=== PATIENT | female | born 1975 | race Caucasian/White ===

== ENCOUNTER 2017-09-20 12:36 | Emergency (ER) | payer OTHER, MEDICAID, SELFPAY | END 2017-09-20 13:24 | disposition home or self-care (01) | PROVIDERS: Emergency Provider Internal Medicine; Visit Provider Internal Medicine | DX: K04.7 Periapical abscess without sinus (principal) | CPT/HCPCS: 99282 ==

== ENCOUNTER 2017-11-24 14:16 | Emergency (ER) | payer OTHER, MEDICAID, SELFPAY ==
[2017-11-24 14:22] VITALS: BP 107/72; PULSE 97; RESP 18; TEMP 36.9; O2SAT 100
--- NOTE | 2017-11-24 14:22 | ED.ABDPAIN ---
HPI - Abdominal Pain <MYRIAM Farrar - Last Filed: 11/24/17 22:07> General Chief Complaint: Abdominal Pain Stated Complaint: 'THINKS SHES PASSING A STONE' Time Seen by Provider: 11/24/17 14:22 History of Present Illness HPI narrative: 42-year-old female with complaint of having abdominal/flank pain into the right side for the last 7 days. She also states that she has been having dysuria for the same timeframe. She reports that she had a fever yesterday and chills last night. Positive p.o. intake no nausea or vomiting. Last bowel movement was yesterday and was unremarkable. She denies any trauma to the abdomen. She denies any vaginal discharge. No blood in her urine. She denies any other concerns or complaints MD complaint: abdominal pain and flank pain Related Data Previous Rx's Medication Instructions Recorded ciprofloxacin HCl 500 mg PO Q12H #14 tab 11/24/17 metronidazole 500 mg PO TID #21 tab 11/24/17 Allergies Allergy/AdvReac Type Severity Reaction Status Date / Time erythromycin base Allergy Unknown Verified 11/24/17 14:26 [ERYTHROMYCIN BASE] Sulfa (Sulfonamide Allergy Unknown Verified 11/24/17 14:26 Antibiotics) [SULFA (SULFONAMIDE ANTIBIOTICS)] Review of Systems <MYRIAM Farrar - Last Filed: 11/24/17 22:07> Constitutional Reports chills and Reports fever(s) Eyes Denies change in vision, Denies eye discharge, Denies irritation and Denies loss of vision ENT Ears, Nose, Mouth, and Throat: Denies change in voice, Denies neck pain and Denies sore throat Cardiovascular Denies chest pain, Denies irregular heart rhythm, Denies lightheadedness, Denies palpitations, Denies dyspnea, Denies dyspnea on exertion and Denies orthopnea Respiratory Denies cough, Denies dyspnea, Denies dyspnea on exertion and Denies wheezing Gastrointestinal Gastrointestinal: Reports abdominal pain Genitourinary Reports dysuria and Reports flank pain Musculoskeletal Denies neck pain Integumentary/Breasts Denies pruritus, Denies erythema, Denies rash and Denies wounds Neurologic Denies confusion and Denies loss of vision Psychiatric Denies anxiety, Denies confusion, Denies depression, Denies homicidal ideation and Denies suicidal ideation Endocrine Denies palpitations Hematologic/Lymphatic Denies easy bruising Allergic/Immunologic Denies wheezing Exam <MYRIAM Farrar - Last Filed: 11/24/17 22:07> Initial Vital Signs Initial Vital Signs: Vital Signs Temperature 98.5 F 11/24/17 14:22 Pulse Rate 97 H 11/24/17 14:22 Respiratory Rate 18 11/24/17 14:22 Blood Pressure 107/72 11/24/17 14:22 Pulse Oximetry 100 11/24/17 14:22 Const General: cooperative and well developed Nutritional Appearance: well nourished Orientation: alert, awake, oriented x3 and not confused [facility] Mouth: oral mucosae normal and moist mucous membranes Eyes Conjunctivae: conjunctivae normal Sclera: sclerae normal Pupils: PERRL EOM: EOM intact bilaterally Resp Effort & Inspection: normal respiratory effort, able to speak in complete sentences, no respiratory distress and no use of accessory muscles Auscultation: clear to auscultation bilaterally, no rales, no rhonchi and no wheezes Cardio Rate: regular rate Rhythm: regular rhythm Heart Sounds: no click, no gallops, no murmurs and no rubs GI Inspection: non-distended Palpation: soft, no hepatosplenomegaly, No guarding, No pulsatile mass and tender (Right abdomen) General: CVA tenderness (Positive right CVA tenderness) Skin General: no rashes or lesions noted, No jaundice and No petechiae <Barry Lucia DO - Last Filed: 11/25/17 08:05> Initial Vital Signs Initial Vital Signs: Vital Signs Temperature 98.5 F 11/24/17 14:22 Pulse Rate 97 H 11/24/17 14:22 Respiratory Rate 18 11/24/17 14:22 Blood Pressure 107/72 11/24/17 14:22 Pulse Oximetry 100 11/24/17 14:22 Course <MYRIAM Farrar - Last Filed: 11/24/17 22:07> Orders Ordered: Discontinued Medications Sodium Chloride (Normal Saline 0.9%) 1,000 mls @ 1,000 mls/hr IV BOLUS ONE Stop: 11/24/17 15:45 Last Infusion: 11/24/17 16:15 Dose: 0 mls/hr Admin: 11/24/17 15:06 Dose: 1,000 mls/hr Ketorolac Tromethamine (Toradol) 30 mg IV NOW ONE Stop: 11/24/17 15:04 Last Admin: 11/24/17 15:06 Dose: 30 mg Ondansetron HCl (Zofran) 4 mg IV NOW ONE Stop: 11/24/17 15:04 Last Admin: 11/24/17 15:06 Dose: 4 mg Vital Signs - 8 hr 11/24/17 14:22 11/24/17 14:38 11/24/17 16:31 Temperature 98.5 F 98.4 F 98.8 F Pulse Rate 97 H 95 H 95 H Respiratory Rate 18 16 18 Blood Pressure 107/72 Blood Pressure [Left Arm] 118/76 128/81 H Pulse Oximetry 100 100 100 <Barry Lucia DO - Last Filed: 11/25/17 08:05> Orders Ordered: Discontinued Medications Sodium Chloride (Normal Saline 0.9%) 1,000 mls @ 1,000 mls/hr IV BOLUS ONE Stop: 11/24/17 15:45 Last Infusion: 11/24/17 16:15 Dose: 0 mls/hr Admin: 11/24/17 15:06 Dose: 1,000 mls/hr Ketorolac Tromethamine (Toradol) 30 mg IV NOW ONE Stop: 11/24/17 15:04 Last Admin: 11/24/17 15:06 Dose: 30 mg Ondansetron HCl (Zofran) 4 mg IV NOW ONE Stop: 11/24/17 15:04 Last Admin: 11/24/17 15:06 Dose: 4 mg Vital Signs - 8 hr 11/24/17 14:22 11/24/17 14:38 11/24/17 16:31 Temperature 98.5 F 98.4 F 98.8 F Pulse Rate 97 H 95 H 95 H Respiratory Rate 18 16 18 Blood Pressure 107/72 Blood Pressure [Left Arm] 118/76 128/81 H Pulse Oximetry 100 100 100 MDM - Abdominal Pain <MYRIAM Farrar - Last Filed: 11/24/17 22:07> Lab Data Result diagrams: 11/24/17 14:52 11/24/17 14:52 Lab Results 11/24/17 11/24/17 11/24/17 Range/Units 14:52 14:52 15:08 WBC 11.5 H (4.5-11.0) X10^3/uL RBC 4.14 (4.0-5.2) X10^6/uL Hgb 12.6 (12.0-16.0) g/dL Hct 37.4 (36-46) % MCV 90.4 (80-100) fL MCH 30.4 (26-34) PG MCHC 33.6 (30-36) % RDW 12.4 (11.6-14.8) % Plt Count 360 (150-400) X10^3/uL Neut % (Auto) 81.9 H (50-75) % Lymph % (Auto) 10.6 L (25-40) % [place] % (Auto) 5.8 (3-14) % Eos % (Auto) 1.2 L (2-4) % Baso % (Auto) 0.5 (0-2) % Neut # (Auto) 9400 H (5720-8558) /uL Sodium 134 L (137-145) mmol/L Potassium 3.7 (3.4-5.1) mmol/L Chloride 98 (98-107) mmol/L Carbon Dioxide 26 (22-32) mmol/L BUN 9 (7-17) mg/dL Creatinine 0.70 (0.52-1.04) mg/dL Estimated GFR > 60.0 (>60) mL/min BUN/Creatinine Ratio 12.9 (6-22) Glucose 139 H (70-100) mg/dL Calcium 8.5 (8.4-10.2) mg/dL Total Bilirubin 1.0 (0.2-1.3) mg/dL AST 17 (14-36) IU/L ALT 27 (9-52) IU/L Alkaline Phosphatase 60 (38-126) U/L Total Protein 6.8 (6.3-8.2) g/dL Albumin 3.8 (3.5-5.0) g/dL Globulin 3.0 (1.7-4.1) g/dL Albumin/Globulin Ratio 1.3 (1.0-2.8) Lipase 29 (23-300) U/L Urine RBC 30-100/hpf H (0-5/HPF) Urine WBC >100/hpf H (0-5/HPF) Ur Squamous Epith Cells 0-1 /hpf Urine Bacteria Moderate (10-30) H (None) Ur Culture Indicated? Specimen cultured Micro UA Comment Not Reportable Imaging Data CT scan - abdomen: Radiologist's impression: PROCEDURE: CT ABDOMEN PELVIS W CON INDICATIONS: Pain into right side of abdomen TECHNIQUE: After the administration of intravenous contrast, 5 mm thick sections acquired from the diaphragm to the symphysis. 5 mm coronal and sagittal reformats were acquired. For radiation dose reduction, the following was used: automated exposure control, adjustment of mA and/or kV according to patient size. COMPARISON: [facility], CT, ABDOMEN/PELVIS WITH CONTRAST, 06/25/2016, 0:45. FINDINGS: Image quality: Excellent. ABDOMEN: Lung bases: Lung bases are clear. Heart size is normal. Solid organs: Liver is normal in size and enhancement. Gallbladder appears clear with normal wall thickness.. Biliary system is non dilated. Pancreas enhances normally. Spleen is normal in size and enhancement. No adrenal nodules. Kidneys demonstrate normal size and enhancement, without hydronephrosis. Peritoneum and bowel: The stomach is nondistended, distal body and antrum appearing thick walled. The duodenal loop is distended with air-fluid level in the third portion. Small bowel loops demonstrate normal wall thickness and caliber. Appendix is air-filled and normal-appearing. The colon is unremarkable except for the sigmoid segment which shows mild, diffuse wall thickening. No diverticular disease. No appreciable paracolic fat stranding or fluid collection. No free air. There is a small amount of free fluid in the right upper quadrant, anterior to the right renal pelvis and adjacent to the duodenum. Nodes and vessels: No retroperitoneal or mesenteric adenopathy by size criteria. Aorta and inferior vena cava are normal in size. Miscellaneous: No ventral hernias. PELVIS: Genitourinary: Bladder wall thickness is normal. Uterus contains a 2.3 cm ill-defined hyperdensity with central hypodensity in the left mid body, likely fibroid as noted previously. No adnexal abnormality seen. Miscellaneous: No inguinal hernias or adenopathy. Bones: No suspicious bony lesions. No vertebral body compression fractures. IMPRESSION: 1. No specific abnormality to explain right lower quadrant pain. Normal appendix is visualized. 2. Apparent thickening of the wall in the distal stomach raising possibility of antritis. The duodenum is moderately distended with air-fluid level. This is nonspecific however there is a small amount of adjacent free fluid that is indeterminate. 3. Mild, diffuse wall thickening is also noted in the sigmoid colon raising possibility of colitis. Bowel findings could simply represent incomplete distention. 4. Enhancing uterine fibroid on the left, 2. 3 cm in size Dictated by: Earnest Jones M.D. on 11/24/2017 at 15:43 Approved by: Earnest Jones M.D. on 11/24/2017 at 15:56 MDM Narrative Medical decision making narrative: CBC shows slightly elevated white count. Glucose was elevated 139 however CBC and Chem panel are otherwise unremarkable. Urinalysis indicates urinary tract infection. CT shows some signs that could indicate colitis otherwise was also unremarkable for acute findings. Will treat for pyelonephritis with clindamycin. Will also place patient on Flagyl to cover for colitis along with the clindamycin. She is encouraged to follow up with the primary care provider in the next few days for re-evaluation. [id number] Tylenol or Motrin as needed for any discomfort. Plenty of fluids. For any worsening symptoms return to the emergency room. <Barry Lucia, - Last Filed: 11/25/17 08:05> Lab Data Lab Results 11/24/17 11/24/17 11/24/17 Range/Units 14:52 14:52 15:08 WBC 11.5 H (4.5-11.0) X10^3/uL RBC 4.14 (4.0-5.2) X10^6/uL Hgb 12.6 (12.0-16.0) g/dL Hct 37.4 (36-46) % MCV 90.4 (80-100) fL MCH 30.4 (26-34) PG MCHC 33.6 (30-36) % RDW 12.4 (11.6-14.8) % Plt Count 360 (150-400) X10^3/uL Neut % (Auto) 81.9 H (50-75) % Lymph % (Auto) 10.6 L (25-40) % [place] % (Auto) 5.8 (3-14) % Eos % (Auto) 1.2 L (2-4) % Baso % (Auto) 0.5 (0-2) % Neut # (Auto) 9400 H (6730-8130) /uL Sodium 134 L (137-145) mmol/L Potassium 3.7 (3.4-5.1) mmol/L Chloride 98 (98-107) mmol/L Carbon Dioxide 26 (22-32) mmol/L BUN 9 (7-17) mg/dL Creatinine 0.70 (0.52-1.04) mg/dL Estimated GFR > 60.0 (>60) mL/min BUN/Creatinine Ratio 12.9 (6-22) Glucose 139 H (70-100) mg/dL Calcium 8.5 (8.4-10.2) mg/dL Total Bilirubin 1.0 (0.2-1.3) mg/dL AST 17 (14-36) IU/L ALT 27 (9-52) IU/L Alkaline Phosphatase 60 (38-126) U/L Total Protein 6.8 (6.3-8.2) g/dL Albumin 3.8 (3.5-5.0) g/dL Globulin 3.0 (1.7-4.1) g/dL Albumin/Globulin Ratio 1.3 (1.0-2.8) Lipase 29 (23-300) U/L Urine RBC 30-100/hpf H (0-5/HPF) Urine WBC >100/hpf H (0-5/HPF) Ur Squamous Epith Cells 0-1 /hpf Urine Bacteria Moderate (10-30) H (None) Ur Culture Indicated? Specimen cultured Micro UA Comment Not Reportable Discharge Plan Departure Patient Disposition: Home, Self-Care Clinical Impression: Pyelonephritis Discharge Date/Time: 11/24/17 17:18 Interventions: ED Discharge Assessment Last Done: 11/24/17 17:17 Instructions: DI for Kidney Infection Activity Restrictions/Additional Instructions: Laboratory results indicate urinary tract infection. CT of the abdomen shows findings that could show some inflammation to the large intestine however this is not definite. UR placed on an antibiotic called ciprofloxacin to cover for kidney infection. You also placed on an antibiotic called Flagyl to cover in case of colitis. Use [id number] Tylenol or Motrin as needed for any discomfort. Plenty of fluids follow up with her primary care provider the next few days for re-evaluation. For any worsening symptoms return to the emergency room. Prescriptions: New metronidazole 500 mg tablet 500 mg PO TID Qty: 21 RF: 0 ciprofloxacin HCl 500 mg tablet 500 mg PO Q12H Qty: 14 RF: 0 Referrals: [facility] [Provider Group] <Barry Lucia, DO - Last Filed: 11/25/17 08:05> Cosign ED Attending Jamee Attestation: I was available for consultation during this patient's emergency department encounter
[2017-11-24 14:38] VITALS: BP 118/76; PULSE 95; RESP 16; TEMP 36.9; O2SAT 100
--- NOTE | 2017-11-24 14:49 | DI.CT.S_ITS ---
PROCEDURE: CT ABDOMEN PELVIS W CON INDICATIONS: Pain into right side of abdomen TECHNIQUE: After the administration of intravenous contrast, 5 mm thick sections acquired from the diaphragm to the symphysis. 5 mm coronal and sagittal reformats were acquired. For radiation dose reduction, the following was used: automated exposure control, adjustment of mA and/or kV according to patient size. COMPARISON: [facility], CT, ABDOMEN/PELVIS WITH CONTRAST, 06/25/2016, 0:45. FINDINGS: Image quality: Excellent. ABDOMEN: Lung bases: Lung bases are clear. Heart size is normal. Solid organs: Liver is normal in size and enhancement. Gallbladder appears clear with normal wall thickness.. Biliary system is non dilated. Pancreas enhances normally. Spleen is normal in size and enhancement. No adrenal nodules. Kidneys demonstrate normal size and enhancement, without hydronephrosis. Peritoneum and bowel: The stomach is nondistended, distal body and antrum appearing thick walled. The duodenal loop is distended with air-fluid level in the third portion. Small bowel loops demonstrate normal wall thickness and caliber. Appendix is air-filled and normal-appearing. The colon is unremarkable except for the sigmoid segment which shows mild, diffuse wall thickening. No diverticular disease. No appreciable paracolic fat stranding or fluid collection. No free air. There is a small amount of free fluid in the right upper quadrant, anterior to the right renal pelvis and adjacent to the duodenum. Nodes and vessels: No retroperitoneal or mesenteric adenopathy by size criteria. Aorta and inferior vena cava are normal in size. Miscellaneous: No ventral hernias. PELVIS: Genitourinary: Bladder wall thickness is normal. Uterus contains a 2.3 cm ill-defined hyperdensity with central hypodensity in the left mid body, likely fibroid as noted previously. No adnexal abnormality seen. Miscellaneous: No inguinal hernias or adenopathy. Bones: No suspicious bony lesions. No vertebral body compression fractures. IMPRESSION: 1. No specific abnormality to explain right lower quadrant pain. Normal appendix is visualized. 2. Apparent thickening of the wall in the distal stomach raising possibility of antritis. The duodenum is moderately distended with air-fluid level. This is nonspecific however there is a small amount of adjacent free fluid that is indeterminate. 3. Mild, diffuse wall thickening is also noted in the sigmoid colon raising possibility of colitis. Bowel findings could simply represent incomplete distention. 4. Enhancing uterine fibroid on the left, 2. 3 cm in size Dictated by: Earnest Jones M.D. on 11/24/2017 at 15:43 Approved by: Earnest Jones M.D. on 11/24/2017 at 15:56
[2017-11-24 15:03] LABS: Add Manual Diff / Slide Review NO; Basophils Percent Auto 0.5 % (0-2); Eosinophils Percent Auto 1.2 % (2-4); Hematocrit 37.4 % (36-46); Hemoglobin 12.6 g/dL (12.0-16.0); Lymphocytes Percent Auto 10.6 % (25-40); Mean Corpuscular HGB Conc 33.6 % (30-36); Mean Corpuscular Hemoglobin 30.4 PG (26-34); Mean Corpuscular Volume 90.4 fL (80-100); Monocytes Percent Auto 5.8 % (3-14); Neutrophils Absolute Auto 9400 /uL (3000-5900); Neutrophils Percent Auto 81.9 % (50-75); Platelet Count 360 X10^3/uL (150-400); Red Blood Cell Count 4.14 X10^6/uL (4.0-5.2); Red Cell Distribution Width 12.4 % (11.6-14.8); White Blood Cell Count 11.5 X10^3/uL (4.5-11.0)
[2017-11-24] MEDS: SODIUM CHLORIDE 0.9% 1,000 ML 1000 ML IV (15:06)
[2017-11-24] MEDS: ONDANSETRON 4 MG/2 ML INJ IV (15:06)
[2017-11-24] MEDS: KETOROLAC 60 MG/2 ML VIAL 30 MG IV (15:06)
[2017-11-24 15:12] LABS: Alanine Aminotransferase 27 IU/L (9-52); Albumin 3.8 g/dL (3.5-5.0); Albumin Globulin Ratio 1.3 (1.0-2.8); Alkaline Phosphatase 60 U/L (38-126); Aspartate Aminotransferase 17 IU/L (14-36); BUN Creatinine Ratio 12.9 (6-22); Blood Urea Nitrogen 9 mg/dL (7-17); Calcium 8.5 mg/dL (8.4-10.2); Carbon Dioxide 26 mmol/L (22-32); Chloride 98 mmol/L (98-107); Estimated Glomerular Filt Rate > 60.0 mL/min (>60); Glucose 139 mg/dL (70-100); HEMOLYSIS < 15 (0-50); Lipase 29 U/L (23-300); Potassium 3.7 mmol/L (3.4-5.1); Sodium 134 mmol/L (137-145); Total Protein 6.8 g/dL (6.3-8.2)
[2017-11-24 16:31] VITALS: BP 128/81; PULSE 95; RESP 18; TEMP 37.1; O2SAT 100
[2017-11-24 16:56] LABS: RBC Urine 30-100/HPF (0-5/HPF); Squamous Epithelial Cell Urine 0-1 /HPF; WBC Urine >100/HPF (0-5/HPF)
[2017-11-24 16:57] LABS: Bacteria Urine Moderate (10-30); Culture Indicated Urine Specimen Cultured
== END 2017-11-24 17:18 | disposition home or self-care (01) ==
PROVIDERS: Emergency Provider Nurse Practitioner Family
DX: N12 Tubulo-interstitial nephritis, not specified as acute or chronic (principal)
CPT/HCPCS: 36591; 74177; 80053; 81003; 81015; 81025; 83690; 85025; 87077; 87086; 87186; 96361; 96374; 96375; 99283; 99285; J1885; J2405; Q9967

== ENCOUNTER 2017-11-26 08:35 | Inpatient (IN) | payer OTHER, MEDICAID, SELFPAY ==
[2017-11-26] VITALS (13 sets, daily range): BP systolic 114–137; BP diastolic 67–99; PULSE 90–124; RESP 16–24; TEMP 37.1–39.4; O2SAT 94–100; BMI 21.9
--- NOTE | 2017-11-26 09:16 | ED_ITS ---
HPI - Female Genitourinary General Chief complaint: Urogenital-Female Stated complaint: KIDNEY PAIN, THROWING UP Time Seen by Provider: 11/26/17 08:38 Source: patient Mode of arrival: ambulatory Limitations: no limitations History of Present Illness HPI Narrative: 42-year-old female here for evaluation of right-sided kidney pain and throwing up. Patient was seen here in the emergency department a couple days ago was diagnosed with the urinary tract infection and also pyelonephritis. She was given a prescription for antibiotics. She states she has been unable to fill those antibiotics because she ?could not get to [facility] ?she states that her symptoms are now worse. She has been throwing up. Fever. Worsening right-sided flank pain. Worsening dysuria. Related Data Home Medications Medication Instructions Recorded Confirmed No Known Home Medications 11/26/17 11/26/17 Allergies Allergy/AdvReac Type Severity Reaction Status Date / Time erythromycin base Allergy Unknown Verified 11/24/17 14:26 [ERYTHROMYCIN BASE] Sulfa (Sulfonamide Allergy Unknown Verified 11/24/17 14:26 Antibiotics) [SULFA (SULFONAMIDE ANTIBIOTICS)] Review of Systems Constitutional Reports fever(s) and Reports malaise ENT Ears, Nose, Mouth, and Throat: Denies vertigo and Denies dizziness Cardiovascular Denies chest pain, Denies palpitations and Denies dyspnea Respiratory Denies cough and Denies dyspnea Gastrointestinal Gastrointestinal: Denies diarrhea, Reports nausea and Reports vomiting Genitourinary Reports urinary frequency, Reports dysuria and Reports flank pain Integumentary/Breasts Denies lesions and Denies rash Neurologic Denies confusion, Denies vertigo and Denies dizziness Psychiatric Denies confusion Endocrine Denies palpitations Hematologic/Lymphatic Denies easy bleeding and Denies easy bruising [facility] Social History household members: none Smoking Status: Current every day smoker alcohol intake: never Exam Initial Vital Signs Initial Vital Signs: Vital Signs Temperature 98.9 F 11/26/17 08:58 Pulse Rate 124 H 11/26/17 08:58 Respiratory Rate 20 11/26/17 08:58 Blood Pressure 137/99 H 11/26/17 08:58 Pulse Oximetry 99 11/26/17 08:58 Const General: cooperative, No comfortable, well developed, in distress and ill appearing [facility] Head: normal to inspection and normocephalic Resp Effort & Inspection: normal respiratory effort Auscultation: clear to auscultation bilaterally Cardio Rate: tachycardic Rhythm: regular rhythm Pulses: radial pulses present GI Inspection: normal to inspection Palpation: tender (Lower abdomen) Back/Spine/Pelvis Back: CVA tenderness right Skin Lesions: no lesions Rashes: no rashes Neuro General: alert, awake and oriented x3 Extrem General: normal to inspection Course Orders Ordered: ED Orders 11/26/17 13:50 Lactate 4HR (Lactic Acid Rflx) Stat 11/26/17 15:14 Education, smoking cessation ONGOING 11/27/17 05:00 Complete Blood Count AUTO DIFF Routine Comprehensive Metabolic Panel Routine Acetaminophen (Tylenol) 650 mg PO Q6HR PRN PRN Reason: As Needed for Fever/Mild Pain Enoxaparin Sodium (Lovenox) 40 mg SUBCUT DAILY LEOPOLDO Sodium Chloride (Normal Saline 0.9%) 1,000 mls @ 125 mls/hr IV CONT LEOPOLDO Last Infusion: 11/26/17 12:19 Dose: 125 mls/hr Admin: 11/26/17 10:49 Dose: 125 mls/hr Dextrose/Sodium Chloride (Dextrose 5%-0.9% Ns) 1,000 mls @ 100 mls/hr IV CONT LEOPOLDO Last Admin: 11/26/17 16:00 Dose: 100 mls/hr Ceftriaxone Sodium/Dextrose (Rocephin) 1 gm in 50 mls @ 100 mls/hr IV 1000 LEOPOLDO Ketorolac Tromethamine (Toradol) 30 mg IV Q6HR PRN PRN Reason: pain Stop: 12/01/17 15:16 Morphine Sulfate (Morphine) 4 mg IV Q4HR PRN PRN Reason: Pain, Moderate (4-6) Last Admin: 11/26/17 17:04 Dose: 4 mg Ondansetron HCl (Zofran) 4 mg IV Q4HR PRN PRN Reason: Nausea And Vomiting Last Admin: 11/26/17 17:00 Dose: 4 mg Discontinued Medications Acetaminophen (Tylenol) 975 mg PO NOW ONE Stop: 11/26/17 10:03 Last Admin: 11/26/17 10:03 Dose: 975 mg Acetaminophen (Tylenol) 650 mg PO Q6HR PRN PRN Reason: As Needed for Fever/Mild Pain Sodium Chloride (Normal Saline 0.9%) 1,000 mls @ 1,000 mls/hr IV BOLUS ONE Stop: 11/26/17 10:13 Last Infusion: 11/26/17 10:48 Dose: 0 mls/hr Admin: 11/26/17 09:32 Dose: 1,000 mls/hr Ceftriaxone Sodium/Dextrose (Rocephin) 1 gm in 50 mls @ 100 mls/hr IV NOW ONE Stop: 11/26/17 09:54 Last Infusion: 11/26/17 10:32 Dose: 0 mls/hr Admin: 11/26/17 09:58 Dose: 100 mls/hr Sodium Chloride (Normal Saline 0.9%) 1,000 mls @ 1,000 mls/hr IV BOLUS ONE Stop: 11/26/17 11:50 Last Infusion: 11/26/17 12:19 Dose: 0 mls/hr Admin: 11/26/17 10:53 Dose: 1,000 mls/hr Morphine Sulfate (Morphine Sulfate) 5 mg IV NOW ONE Stop: 11/26/17 09:26 Last Admin: 11/26/17 09:33 Dose: Morphine Sulfate (Morphine) 4 mg IV NOW ONE Stop: 11/26/17 09:39 Last Admin: 11/26/17 09:39 Dose: 4 mg Morphine Sulfate (Morphine) 4 mg IV Q4HR PRN PRN Reason: Pain, Moderate (4-6) Ondansetron HCl (Zofran) 4 mg IV NOW ONE Stop: 11/26/17 09:26 Last Admin: 11/26/17 09:33 Dose: 4 mg Vital Signs - 8 hr 11/26/17 11:22 11/26/17 12:30 11/26/17 15:14 Temperature 99.2 F Pulse Rate 98 H 100 H Respiratory Rate 17 18 18 Blood Pressure 118/67 Blood Pressure [Left Arm] 114/70 Pulse Oximetry 97 95 11/26/17 15:58 Temperature 98.8 F Pulse Rate 96 H Respiratory Rate 16 Blood Pressure 123/74 H Blood Pressure [Left Arm] Pulse Oximetry 99 MDM - Female Genitourinary Medical Records Attestation: I reviewed the patient's medical records. Lab Data Attestation: I reviewed the patient's lab results. Result diagrams: 11/26/17 09:20 11/26/17 09:20 Lab Results 11/26/17 11/26/17 11/26/17 Range/Units 09:20 09:20 09:20 WBC 14.2 H (4.5-11.0) X10^3/uL RBC 3.62 L (4.0-5.2) X10^6/uL Hgb 11.0 L (12.0-16.0) g/dL Hct 32.4 L (36-46) % MCV 89.4 (80-100) fL MCH 30.4 (26-34) PG MCHC 33.9 (30-36) % RDW 12.1 (11.6-14.8) % Plt Count 374 (150-400) X10^3/uL Neut % (Auto) 82.7 H (50-75) % Lymph % (Auto) 6.0 L (25-40) % [place] % (Auto) 9.3 (3-14) % Eos % (Auto) 1.3 L (2-4) % Baso % (Auto) 0.7 (0-2) % Neut # (Auto) 62672 H (3865-7395) /uL Sodium 129 L (137-145) mmol/L Potassium 3.9 (3.4-5.1) mmol/L Chloride 94 L (98-107) mmol/L Carbon Dioxide 23 (22-32) mmol/L BUN 10 (7-17) mg/dL Creatinine 0.60 (0.52-1.04) mg/dL Estimated GFR > 60.0 (>60) mL/min BUN/Creatinine Ratio 16.7 (6-22) Glucose 120 H (70-100) mg/dL Lactate 2.6 H (0.7-2.1) mmol/L Calcium 8.2 L (8.4-10.2) mg/dL Total Bilirubin 0.5 (0.2-1.3) mg/dL AST 33 (14-36) IU/L ALT 32 (9-52) IU/L Alkaline Phosphatase 81 (38-126) U/L Total Protein 6.4 (6.3-8.2) g/dL Albumin 3.6 (3.5-5.0) g/dL Globulin 2.8 (1.7-4.1) g/dL Albumin/Globulin Ratio 1.3 (1.0-2.8) Lipase 43 (23-300) U/L 11/26/17 Range/Units 13:50 WBC (4.5-11.0) X10^3/uL RBC (4.0-5.2) X10^6/uL Hgb (12.0-16.0) g/dL Hct (36-46) % MCV (80-100) fL MCH (26-34) PG MCHC (30-36) % RDW (11.6-14.8) % Plt Count (150-400) X10^3/uL Neut % (Auto) (50-75) % Lymph % (Auto) (25-40) % [place] % (Auto) (3-14) % Eos % (Auto) (2-4) % Baso % (Auto) (0-2) % Neut # (Auto) (9559-4060) /uL Sodium (137-145) mmol/L Potassium (3.4-5.1) mmol/L Chloride (98-107) mmol/L Carbon Dioxide (22-32) mmol/L BUN (7-17) mg/dL Creatinine (0.52-1.04) mg/dL Estimated GFR (>60) mL/min BUN/Creatinine Ratio (6-22) Glucose (70-100) mg/dL Lactate 0.8 (0.7-2.1) mmol/L Calcium (8.4-10.2) mg/dL Total Bilirubin (0.2-1.3) mg/dL AST (14-36) IU/L ALT (9-52) IU/L Alkaline Phosphatase (38-126) U/L Total Protein (6.3-8.2) g/dL Albumin (3.5-5.0) g/dL Globulin (1.7-4.1) g/dL Albumin/Globulin Ratio (1.0-2.8) Lipase (23-300) U/L [facility] Narrative Medical decision making narrative: Patient with a diagnosis of urinary tract infection and pyelonephritis during her last ER visit. Has not been on any antibiotics. Today here with worsening symptoms and vomiting a tachycardia and fever and elevated white count in elevated lactate. She was given Rocephin and fluids here in the emergency department. Discussed the case with Dr. Wheeler with Internal Medicine will admit for IV antibiotics and fluid hydration. Discharge Plan Departure Patient Disposition: Admitted As Inpatient Clinical Impression: Pyelonephritis, Sepsis Discharge Date/Time: 11/26/17 12:49 Interventions: ED Discharge Assessment Last Done: 11/26/17 12:19 Admit Date/Time: 11/26/17 11:49 Admit Provider: Beck Wheeler
[2017-11-26] MEDS: SODIUM CHLORIDE 0.9% 1,000 ML 1000 ML IV ×2 (09:32→10:53)
[2017-11-26] MEDS: ONDANSETRON 4 MG/2 ML INJ IV ×2 (09:33→17:00)
[2017-11-26 09:34] LABS: Add Manual Diff / Slide Review NO; Basophils Percent Auto 0.7 % (0-2); Eosinophils Percent Auto 1.3 % (2-4); Hematocrit 32.4 % (36-46); Mean Corpuscular HGB Conc 33.9 % (30-36); Mean Corpuscular Hemoglobin 30.4 PG (26-34); Mean Corpuscular Volume 89.4 fL (80-100); Monocytes Percent Auto 9.3 % (3-14); Neutrophils Absolute Auto 11700 /uL (3000-5900); Neutrophils Percent Auto 82.7 % (50-75); Platelet Count 374 X10^3/uL (150-400); Red Blood Cell Count 3.62 X10^6/uL (4.0-5.2); Red Cell Distribution Width 12.1 % (11.6-14.8); White Blood Cell Count 14.2 X10^3/uL (4.5-11.0)
[2017-11-26] MEDS: MORPHINE 4 MG/ML INJ IV ×3 (09:39→21:17)
[2017-11-26 09:41] LABS: Lactate (Lactic Acid) 2.6 mmol/L (0.7-2.1)
[2017-11-26 09:42] LABS: Alanine Aminotransferase 32 IU/L (9-52); Albumin 3.6 g/dL (3.5-5.0); Albumin Globulin Ratio 1.3 (1.0-2.8); Alkaline Phosphatase 81 U/L (38-126); Aspartate Aminotransferase 33 IU/L (14-36); BUN Creatinine Ratio 16.7 (6-22); Bilirubin Total 0.5 mg/dL (0.2-1.3); Blood Urea Nitrogen 10 mg/dL (7-17); Calcium 8.2 mg/dL (8.4-10.2); Carbon Dioxide 23 mmol/L (22-32); Chloride 94 mmol/L (98-107); Estimated Glomerular Filt Rate > 60.0 mL/min (>60); Globulin 2.8 g/dL (1.7-4.1); Glucose 120 mg/dL (70-100); HEMOLYSIS < 15 (0-50); Lipase 43 U/L (23-300); Potassium 3.9 mmol/L (3.4-5.1); Sodium 129 mmol/L (137-145); Total Protein 6.4 g/dL (6.3-8.2)
[2017-11-26] MEDS: CEFTRIAXONE 1 GM/50 ML FROZ.PIGGY IV (09:58)
[2017-11-26] MEDS: ACETAMINOPHEN 325 MG TABLET 975 MG PO (10:03)
[2017-11-26] MEDS: SODIUM CHLORIDE 0.9% 1,000 ML 125 ML IV (10:49)
[2017-11-26 13:30] LABS: Reflexed Lactate in 2 Hours Y
--- NOTE | 2017-11-26 13:47 | PC.NURSE ---
Addendum entered by Dayan Mccord R.N. 11/26/17 14:22: Resting quietly with eyes closed, awakened easily to voice/touch. IV fluids re-started per orders, site in L forearm flushed well and with good blood return. IV secured with more tape and mesh sleeve. Patient denies needs at this time. She's hoping to catch up on some sleep. Agrees to call for SBA to BR (to help with IV pole). Call light in reach. Original Note: Admit: Arrived to room 221 at 1230. Alert and oriented X3, transferred self to bed and steady on feet. Low fall risk, agrees to call if she has any concerns about transferring alone. Denies fever, chills. Temp 99.2 orally. Denies N/V or abd pain. C/O slight headache, otherwise states I'm feeling so much better than I was this morning. Abd soft, nontender, BT+. Lungs CTA, SpO2 on RA 99%. HRR. Oriented to call light and encouraged to make needs known. Declined to lock wallet, cellphone or other items in safe. Page out to Dr Wheeler at this time to let him know patient is here.
[2017-11-26 14:09] LABS: Lactate 2HR (Lactic Acid Rflx) 0.8 mmol/L (0.7-2.1)
--- NOTE | 2017-11-26 15:17 | PM.HP.1 ---
History of Present Illness Date Patient Seen: 11/26/17 Time Patient Seen: 15:17 Chief complaint: Pyelonephritis, Sepsis Narrative: 42-year-old female previously healthy presented a few days ago to the ER with flank pain diagnosed with a kidney infection and did not do well as an outpatient she comes back in now with fever and worsening pain. Previously had been very healthy. She also complains of nausea vomiting inability keep anything down. Patient History Family & Social History Social History: household members none Prior Living Arrangements Mobile home Safety & Behavioral: Feels Safe in Current Yes Environment Been Physically Hurt or No Threatened By a Person Suicidal Ideation Description None Suicide Plan Description No Plan Tobacco & Substance use: Tobacco type cigarettes Smoking Status Current every day smoker Smoking packs per day 1 alcohol intake never alcohol intake frequency 0-2 drinks per day Substance Use Type marijuana Meds Home Medications Medication Instructions Recorded Confirmed Type No Known Home Medications 11/26/17 11/26/17 History Allergies Allergy/AdvReac Type Severity Reaction Status Date / Time erythromycin base Allergy Unknown Verified 11/24/17 14:26 [ERYTHROMYCIN BASE] Sulfa (Sulfonamide Allergy Unknown Verified 11/24/17 14:26 Antibiotics) [SULFA (SULFONAMIDE ANTIBIOTICS)] Review of Systems Review of Systems All systems reviewed & are unremarkable except as noted in HPI and below Exam Vital Signs (past 8 hours): - 11/26/17 08:58 11/26/17 09:39 11/26/17 09:40 Temperature 98.9 F 103 F H Pulse Rate 124 H 104 H Respiratory Rate 20 Blood Pressure 137/99 H Blood Pressure [Left Arm] 114/79 Pulse Oximetry 99 96 11/26/17 09:41 11/26/17 10:03 11/26/17 10:05 Temperature 103 F H Pulse Rate 102 H 101 H Respiratory Rate 24 20 Blood Pressure Blood Pressure [Left Arm] 114/79 121/77 H Pulse Oximetry 96 94 11/26/17 10:54 11/26/17 10:55 11/26/17 11:22 Temperature 98.9 F 98.9 F Pulse Rate 98 H Respiratory Rate 17 Blood Pressure Blood Pressure [Left Arm] 114/70 Pulse Oximetry 97 11/26/17 12:30 Temperature 99.2 F Pulse Rate 100 H Respiratory Rate 18 Blood Pressure 118/67 Blood Pressure [Left Arm] Pulse Oximetry 95 Oxygen Delivery Method Room Air Oxygen Flow Rate 0 Narrative Exam Narrative: Pleasant middle-aged female no acute distress eating lunch currently HEENT exam unremarkable neck is supple Lungs Clear to auscultation Heart tachycardic Abdomen soft Back she does have CVA tenderness to palpation percussion on the right Neuro exam awake alert oriented no focal deficits Skin warm and dry Objective Labs Result Diagrams: 11/26/17 09:20 11/26/17 09:20 Labs: Laboratory Results - last 24 hr 11/26/17 11/26/17 11/26/17 09:20 09:20 09:20 WBC 14.2 H RBC 3.62 L Hgb 11.0 L Hct 32.4 L MCV 89.4 MCH 30.4 MCHC 33.9 RDW 12.1 Plt Count 374 Neut % (Auto) 82.7 H Lymph % (Auto) 6.0 L [place] % (Auto) 9.3 Eos % (Auto) 1.3 L Baso % (Auto) 0.7 Neut # (Auto) 86473 H Sodium 129 L Potassium 3.9 Chloride 94 L Carbon Dioxide 23 BUN 10 Creatinine 0.60 Estimated GFR > 60.0 BUN/Creatinine Ratio 16.7 Glucose 120 H Lactate 2.6 H Calcium 8.2 L Total Bilirubin 0.5 AST 33 ALT 32 Alkaline Phosphatase 81 Total Protein 6.4 Albumin 3.6 Globulin 2.8 Albumin/Globulin Ratio 1.3 Lipase 43 11/26/17 13:50 WBC RBC Hgb Hct MCV MCH MCHC RDW Plt Count Neut % (Auto) Lymph % (Auto) [place] % (Auto) Eos % (Auto) Baso % (Auto) Neut # (Auto) Sodium Potassium Chloride Carbon Dioxide BUN Creatinine Estimated GFR BUN/Creatinine Ratio Glucose Lactate 0.8 Calcium Total Bilirubin AST ALT Alkaline Phosphatase Total Protein Albumin Globulin Albumin/Globulin Ratio Lipase Assessment & Plan Plan: Assessment/Plan Narrative: One. Pyelonephritis patient has been unresponsive to outpatient treatment failed outpatient treatment. Now with intractable nausea and vomiting. Plan to place her inpatient IV antibiotics IV fluids and treat aggressively. Quality VTE Deep Vein Thrombosis/Pulmonary Embolism Present on Admission: No
[2017-11-26] MEDS: DEXTROSE 5%-0.9% NS 1,000 ML 100 ML IV (16:00)
[2017-11-26] MEDS: ACETAMINOPHEN 325 MG TABLET 650 MG PO (20:38)
[2017-11-27] VITALS (8 sets, daily range): BP systolic 129–148; BP diastolic 64–78; PULSE 81–97; RESP 16–22; TEMP 36.5–37.5; O2SAT 97–100
[2017-11-27 00:41] LABS: Acinetobacter baumannii Not Detected (Not Detect); Enterobacteriaceae species Detected (Not Detect); Enterococcus species Not Detected (Not Detect); KPC (carbapenem-resist gene) Not Detected (Not Detect); Listeria monocytogenes Not Detected (Not Detect); Staphylococcus species Not Detected (Not Detect); Streptococcus agalactiae (Gr B Not Detected (Not Detect); Streptococcus pneumonia Not Detected (Not Detect); Streptococcus pyogenes (Gr A) Not Detected (Not Detect); Streptococcus species Not Detected (Not Detect)
[2017-11-27 00:44] LABS: Candida albicans Not Detected (Not Detect); Candida glabrata Not Detected (Not Detect); Candida krusei Not Detected (Not Detect); Candida parapsilosis Not Detected (Not Detect); Candida tropicalis Not Detected (Not Detect); E. coli Detected (Not Detect); Enterobacter cloacae complex Not Detected (Not Detect); Haemophilus influenzae Not Detected (Not Detect); Neisseria meningitidis Not Detected (Not Detect); Proteus species Not Detected (Not Detect); Pseudomonas aeruginosa Not Detected (Not Detect); Serratia marcescens Not Detected (Not Detect)
[2017-11-27] MEDS: DEXTROSE 5%-0.9% NS 1,000 ML 100 ML IV ×2 (00:45→10:00)
--- NOTE | 2017-11-27 05:41 | PC.NURSE ---
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 No prn's given throuhgout night. OOB several times to BR to void. Was missing hat X2 in toilet, now 2 measuring hats present, pt aware of need for I/O's. Drinking lots of fluid, water, cranberry and grape juice. IVF infusing well to left FA PIV. Urine yellow with pink ting and very small clots present. Rec'd call from lab at 0042, 2 each bottle of blood cultures positive for ecoli, Dr Wheeler paged X2 and made aware upon Dr. Wheeler call back, currently on Ceftriaxone, no further orders rec'd. Temp max 99.5F, pt stated feeling cold asking for frequent warm blankets, diaphoretic X1. Bed alarm on, pt sets off and does not use call light to call for help to BR. SBA, steady gait, previous shift was tangled in IV line.
[2017-11-27 05:54] LABS: Add Manual Diff / Slide Review NO; Basophils Percent Auto 0.5 % (0-2); Eosinophils Percent Auto 1.4 % (2-4); Hematocrit 33.4 % (36-46); Hemoglobin 11.2 g/dL (12.0-16.0); Lymphocytes Percent Auto 9.5 % (25-40); Mean Corpuscular HGB Conc 33.6 % (30-36); Mean Corpuscular Volume 92.1 fL (80-100); Monocytes Percent Auto 10.8 % (3-14); Neutrophils Absolute Auto 8200 /uL (3000-5900); Neutrophils Percent Auto 77.8 % (50-75); Platelet Count 331 X10^3/uL (150-400); Red Blood Cell Count 3.62 X10^6/uL (4.0-5.2); White Blood Cell Count 10.6 X10^3/uL (4.5-11.0)
[2017-11-27 06:04] LABS: Alanine Aminotransferase 149 IU/L (9-52); Albumin 3.3 g/dL (3.5-5.0); Albumin Globulin Ratio 1.1 (1.0-2.8); Alkaline Phosphatase 104 U/L (38-126); Aspartate Aminotransferase 127 IU/L (14-36); Bilirubin Total 0.6 mg/dL (0.2-1.3); Blood Urea Nitrogen 7 mg/dL (7-17); Calcium 8.4 mg/dL (8.4-10.2); Carbon Dioxide 24 mmol/L (22-32); Chloride 102 mmol/L (98-107); Estimated Glomerular Filt Rate > 60.0 mL/min (>60); Globulin 2.9 g/dL (1.7-4.1); Glucose 102 mg/dL (70-100); HEMOLYSIS < 15 (0-50); Potassium 3.9 mmol/L (3.4-5.1); Sodium 135 mmol/L (137-145); Total Protein 6.2 g/dL (6.3-8.2)
[2017-11-27] MEDS: ENOXAPARIN 40 MG/0.4 ML SYRINGE SUBCUT (10:00)
[2017-11-27] MEDS: CEFTRIAXONE 1 GM/50 ML FROZ.PIGGY IV (10:01)
[2017-11-27] MEDS: ACETAMINOPHEN 325 MG TABLET 650 MG PO (10:01)
--- NOTE | 2017-11-27 12:11 | PC.NURSE ---
Shift summary: Alert and oriented x3. Reports feeling way better than at admit. Denies chills or feeling feverish, Afebrile w/ temp 98.8. Denies abd or flank pain. Medicated with Tylenol for C/O headache. Reports urinary urgency, but reports dysuria greatly improved. Tolerating PO's without issue. Up indep, or SBA PRN. Calls appropriately.
--- NOTE | 2017-11-27 14:54 | CM.DANOTE ---
DCP/Assessment: Reviewed chart. Patient is a 42yr old female admitted [facility] with [facility]. Primary payor is 1)[employer] 2)Medicaid. No identified PCP. Met with patient explained CM/SW role. Patient alert and oriented sitting in the window at time of visit. Patient reports that [place]. 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 Patient does not anticipate any d/c planning needs at this time. Patient reports that when she initially got sick she went to the ER but could not get her prescriptions filled because she had no vehicle. Therefore, patient reports that she got sicker and came back. Patient reports that she plans to get all her prescriptions filled in [place] prior to returning home. Patient denies illegal drug use but does report smoking marijuana on regular basis. Patient is also an active smoker. Patient encouraged to discuss obtaining a nicotine patch during hospitalization if needed. Patient agreeable. Patient has friend/Matt ph# [phone] that she refers to as her contact. P: Anticipate home when medically stable. CM team to follow closely. 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 Prior Living Arrangements Mobile home Household Members none Comment Patient can drive but currently does not own vehicle . Independent with ADL's Yes Is patient alert and oriented? Yes Caregiver for Another No Discharge Plan Home Review Status In Process Next Review Type Discharge Review
--- NOTE | 2017-11-27 15:30 | PM.DS.1 ---
History of Present Illness Chief complaint: Pyelonephritis, Sepsis Narrative: Patient presented with fever, rigors and right flank pain with recent diagnosis of pansensitive E coli UTI. 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 Discharge Providers Date of admission: 11/26/17 11:49 Discharge provider: Ren Rahman MD Summary Discharge Diagnosis: 1. Sepsis due to urinary source 2. Acute pyelonephritis secondary to pansensitive E coli Hospital Course: Patient was started on IV Rocephin, IV fluids, medications for pain control and nausea. She had excellent clinical response with resolution of fever, normalization of white blood cell count, and substantial improvement in right flank pain. Her blood cultures and repeat urine culture are growing E coli which is presumably same source and sensitivities as her urine culture from November 24. She got 2 doses of IV Rocephin and will be discharged on oral Ceftin x 12 days to complete a 2 week antibiotic course. Also given as needed prescription for Zofran and and naproxen. She will follow up with PCP next week. Status at Discharge Overall status at discharge: patient is back to baseline Time Spent with Patient Greater than 30 minutes Exam Vital Signs (past 8 hours): - 11/27/17 08:00 11/27/17 09:54 11/27/17 10:17 Temperature 98.8 F Pulse Rate 87 Respiratory Rate 18 Blood Pressure 148/66 H Pulse Oximetry 100 99 99 11/27/17 13:00 Temperature 97.7 F Pulse Rate 91 H Respiratory Rate 16 Blood Pressure 135/78 H Pulse Oximetry 99 Oxygen Delivery Method Room Air Oxygen Flow Rate 0 Narrative Exam Narrative: She is alert and well oriented and in no acute distress. Abdomen is soft and nontender, minimally tender right flank. Objective Labs Result Diagrams: 11/27/17 05:15 11/27/17 05:15 Labs: Laboratory Results - last 24 hr 11/27/17 11/27/17 11/27/17 05:15 05:15 09:20 WBC 10.6 RBC 3.62 L Hgb 11.2 L Hct 33.4 L MCV 92.1 MCH 31.0 MCHC 33.6 RDW 12.0 Plt Count 331 Neut % (Auto) 77.8 H Lymph % (Auto) 9.5 L [place] % (Auto) 10.8 Eos % (Auto) 1.4 L Baso % (Auto) 0.5 Neut # (Auto) 8200 H Sodium 135 L Potassium 3.9 Chloride 102 Carbon Dioxide 24 BUN 7 Creatinine 0.50 L Estimated GFR > 60.0 BUN/Creatinine Ratio 14.0 Glucose 102 H Calcium 8.4 Total Bilirubin 0.6 AST 127 H ALT 149 H Alkaline Phosphatase 104 Total Protein 6.2 L Albumin 3.3 L Globulin 2.9 Albumin/Globulin Ratio 1.1 A. baumannii (PCR) Not detected Felipa albicans (PCR) Not detected C. glabrata (PCR) Not detected C. krusei (PCR) Not detected C. parapsilosis (PCR) Not detected C. tropicalis (PCR) Not detected Enterobacteriac sp PCR Detected H E. cloacae complex PCR Not detected Enterococcus sp PCR Not detected E. coli (PCR) Detected H H. influenzae (PCR) Not detected Klebsiella oxytoca PCR Not detected Klebsiella pneumoniae Not detected List. monocytogenes PCR Not detected N. meningitidis (PCR) Not detected Proteus species (PCR) Not detected Serratia marcescens PCR Not detected Staphylococcus sp PCR Not detected Staph aureus (PCR) Not detected mecA-Methicil Res Gene Not Reportable Streptococcus sp PCR Not detected Group A Strep (PCR) Not detected Strep agalactiae (PCR) Not detected Strep pneumoniae (PCR) Not detected P. aeruginosa (PCR) Not detected [place]/B-Vanco Res Genes Not Reportable KPC-Carbap Res Gene PCR Not detected Discharge Plan Discharge Plan Patient Disposition: Home, Self-Care Provider Discharge Instructions Diet: Diet as Tolerated Discharge Data Attending Provider: Beck Wheeler Admit Date/Time: 11/26/17 11:49 Quality VTE Deep Vein Thrombosis/Pulmonary Embolism Present on Admission: No
[2017-11-27] MEDS: KETOROLAC 30 MG/ML VIAL IV (16:13)
== END 2017-11-27 17:01 | disposition home or self-care (01) | DRG 463 ==
LOC: ED 10:39 → AC 11:51
PROVIDERS: Admitting Provider Internal Medicine; Emergency Provider Emergency Medicine; Visit Provider Internal Medicine
DX: N12 Tubulo-interstitial nephritis, not specified as acute or chronic (principal); F17.210 Nicotine dependence, cigarettes, uncomplicated; B96.20 Unspecified Escherichia coli [E. coli] as the cause of diseases classified elsewhere
CPT/HCPCS: 36415; 36591; 80053; 83605; 83690; 85025; 87040; 87077; 87086; 87150; 87186; 87205; 96361; 96365; 96375; 99284; 99285; 99406; J1650; J1885; J2270; J2405

== ENCOUNTER 2018-12-05 22:03 | Emergency (ER) | payer OTHER, MEDICAID, SELFPAY ==
[2017-11-26 12:43] VITALS: BMI 21.9
[2018-12-05] MEDS: TET,DIPH,PERTUSS(ACELL),VAC/PF 0.5 ML SYRINGE IM (22:10)
[2018-12-05 22:11] VITALS: BP 151/81; PULSE 68; RESP 18; TEMP 36.9; O2SAT 96; BMI 21.9
[2018-12-05 22:20] VITALS: BP 118/94; PULSE 90; RESP 14; O2SAT 100
--- NOTE | 2018-12-05 22:44 | PC.NURSE ---
Pt has small puncture wound to Right forearm from metal object states needs tetanus shot is unsure of last tetanus immunization date.
--- NOTE | 2018-12-06 06:54 | ED.WOUNDLAC ---
HPI - Wound/Laceration General Chief Complaint: Wound/Laceration Stated Complaint: thinks she needs a tetanus shot Time Seen by Provider: 12/05/18 22:08 Source: patient Mode of arrival: ambulatory Limitations: no limitations History of Present Illness HPI narrative: 43-year-old female daily smoker without contributory medical problems presents with a chief complaint a puncture wound on her right forearm. 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 She has very minimal bleeding and full, painless range of motion. Her last tetanus was over 10 years ago. She denies numbness or tingling and is otherwise well and free of complain Onset (ago): hour(s) Extremity Location: Right: forearm Place: home Patient tetanus UTD: No Context: accidental Associated symptoms: none Related Data Previous Rx's Medication Instructions Recorded naproxen 500 mg PO Q12H PRN #10 tab 11/27/17 ondansetron HCl 4 mg PO Q6H PRN #10 tab 11/27/17 doxycycline monohydrate 100 mg PO BID 10 Days #20 cap 12/05/18 Allergies Allergy/AdvReac Type Severity Reaction Status Date / Time erythromycin base Allergy Unknown Verified 11/24/17 14:26 [ERYTHROMYCIN BASE] Sulfa (Sulfonamide Allergy Unknown Verified 11/24/17 14:26 Antibiotics) [SULFA (SULFONAMIDE ANTIBIOTICS)] Review of Systems Constitutional Denies chills, Denies fever(s), Denies lethargy and Denies weakness Eyes Denies change in vision, Denies eye discharge, Denies irritation and Denies loss of vision ENT Ears, Nose, Mouth, and Throat: Denies change in voice, Denies neck pain and Denies sore throat Cardiovascular Denies chest pain, Denies irregular heart rhythm, Denies lightheadedness, Denies palpitations, Denies dyspnea, Denies dyspnea on exertion and Denies orthopnea Respiratory Denies cough, Denies dyspnea, Denies dyspnea on exertion and Denies wheezing Gastrointestinal Gastrointestinal: Denies abdominal pain, Denies change in bowel habits, Denies diarrhea, Denies nausea and Denies vomiting Genitourinary Denies hematuria, Denies flank pain, Denies urinary incontinence and Denies urinary urgency Musculoskeletal Denies neck pain Integumentary/Breasts Denies pruritus, Denies erythema, Denies rash and Reports wounds Neurologic Denies confusion, Denies loss of vision and Denies weakness Psychiatric Denies anxiety, Denies confusion, Denies depression, Denies homicidal ideation and Denies suicidal ideation Endocrine Denies palpitations Hematologic/Lymphatic Denies easy bruising Allergic/Immunologic Denies wheezing [facility] Social History household members: none Smoking Status: Current every day smoker alcohol intake: never Social History household members: none Smoking Status: Current every day smoker alcohol intake: never Exam Narrative Exam Narrative: GEN: AOx3 and in mild distress EYES: Pupils are equal, round, and reactive to light and accommodation. Extraoccular muscles are intact bilaterally. There is no subconjunctival hemorrhage or exudate. CHEST: Lungs are clear to auscultation bilaterally and free of wheezes, rales, or rhonchi. Heart rate is regular rhythm, there are no murmurs, clicks, rubs, or gallops. There is no chest wall tenderness. ABD: Abdomen is soft and nontender. There is no guarding or rebound. Bowel sounds are normal in all 4 quadrants. There is no mass or organomegaly. EXT: Full painless ROM of all extremities with no loss of sensation or strength. SKIN: Small, non bleeding puncture on volar surface of mid right forearm without surrounding erythema Warm, pink, and dry. No erythema or rash Initial Vital Signs Initial Vital Signs: Vital Signs Temperature 98.5 F 12/05/18 22:11 Pulse Rate 68 12/05/18 22:11 Respiratory Rate 18 12/05/18 22:11 Blood Pressure 151/81 H 12/05/18 22:11 Pulse Oximetry 96 12/05/18 22:11 Course Orders Ordered: Discontinued Medications Diphtheria/Tetanus/Acell Pertussis (Adacel) 0.5 ml IM .ONCE ONE Stop: 12/05/18 22:09 Last Admin: 12/05/18 22:10 Dose: 0.5 ml MDM - Wound/Laceration MDM Narrative Medical decision making narrative: 43-year-old female with puncture wound toe her right forearm. Tetanus is updated, wound cleaned. No suspicion of foreign body. Patient given antibiotics and return precautions, she verbalizes her understanding Discharge Plan Departure Patient Disposition: Home Clinical Impression: Puncture wound of forearm, right Qualifiers: Encounter type: initial encounter Qualified Code(s): S51.831A - Puncture wound without foreign body of right forearm, initial encounter Discharge Date/Time: 12/05/18 22:20 Interventions: ED Discharge Assessment Last Done: 12/05/18 22:20 Instructions: DI for Puncture Wound Activity Restrictions/Additional Instructions: *You have been diagnosed with [puncture wound right forearm, tetanus update] *What to do: *Take medications as directed: Even given a prescription for an antibiotic, please only get it filled few show signs of infection such as redness, swelling or drainage *Follow up with your primary care provider in 2-3 days, call for an appointment. Let them know you were seen in the Emergency Department and that we ask that you be seen in follow up *Return to ER if you should have any new, worsening or concerning symptoms Prescriptions: New doxycycline monohydrate 100 mg capsule 100 mg PO BID 10 Days Qty: 20 RF: 0 No Action ondansetron HCl 4 mg tablet 4 mg PO Q6H PRN (Reason: nausea and vomiting) Qty: 10 RF: 0 naproxen 500 mg tablet 500 mg PO Q12H PRN (Reason: pain) Qty: 10 RF: 0
== END 2018-12-05 22:20 | disposition home or self-care (01) ==
PROVIDERS: Emergency Provider Emergency Medicine
DX: S51.831A Puncture wound without foreign body of right forearm, initial encounter (principal); W26.8XXA Contact with other sharp object(s), not elsewhere classified, initial encounter; Z23 Encounter for immunization
CPT/HCPCS: 90471; 99283; 90715

== ENCOUNTER 2019-04-03 02:53 | Emergency (ER) | payer OTHER, MEDICAID, SELFPAY ==
[2017-11-26 12:43] VITALS: BMI 21.9
[2019-04-03 03:00] VITALS: BP 144/106; PULSE 92; RESP 14; TEMP 36.3; BMI 21.9
[2019-04-03] MEDS: IBUPROFEN 400 MG TABLET 800 MG PO (03:13)
--- NOTE | 2019-04-03 06:51 | ED.UPPEXIN ---
HPI - Extremity Injury (Upper) General Chief Complaint: Extremity Injury, Upper Stated Complaint: left shoulder pain Time Seen by Provider: 04/03/19 02:55 Source: patient Mode of arrival: Ambulatory Limitations: no limitations History of Present Illness HPI narrative: 44-year-old female smoker presents with a chief complaint of ongoing left shoulder pain since chopping wood a few weeks ago. She states it is worse when she moves and improves with rest. She denies numbness, tingling or weakness. She denies any direct trauma. She has full but painful range of motion. She has been taking Tylenol and Motrin with some relief. Tonight she presents because it was keeping her up and she was unable to sleep. complaint: injury to: left Onset (ago): week(s) Other Extremity Injury: Left: shoulder Other injuries: none Handedness: right Place: outdoors Severity: moderate Relieving factors: rest Exacerbating factors: movement of extremity Context: other Associated symptoms: denies other symptoms Treatments prior to arrival: NSAIDS Related Data Previous Rx's Medication Instructions Recorded naproxen 500 mg PO Q12H PRN #10 tab 11/27/17 ondansetron HCl 4 mg PO Q6H PRN #10 tab 11/27/17 ketorolac 10 mg PO Q6H PRN #14 tab 04/03/19 Allergies Allergy/AdvReac Type Severity Reaction Status Date / Time erythromycin base Allergy Unknown Verified 11/24/17 14:26 [ERYTHROMYCIN BASE] Sulfa (Sulfonamide Allergy Unknown Verified 11/24/17 14:26 Antibiotics) [SULFA (SULFONAMIDE ANTIBIOTICS)] Review of Systems Constitutional Constitutional: Denies chills, Denies fatigue, Denies fever(s), Denies frequent falls, Denies lethargy and Denies weakness Eyes Eyes: Denies change in vision, Denies eye discharge, Denies irritation and Denies loss of vision ENT Ears, Nose, Mouth, and Throat: Denies change in voice, Denies dizziness, Denies neck pain, Denies sore throat and Denies throat swelling Cardiovascular Cardiovascular: Denies chest pain, Denies irregular heart rhythm, Denies lightheadedness, Denies palpitations, Denies dyspnea, Denies dyspnea on exertion and Denies orthopnea Respiratory Respiratory: Denies cough, Denies dyspnea, Denies dyspnea on exertion and Denies wheezing Gastrointestinal Gastrointestinal: Denies abdominal pain, Denies change in bowel habits, Denies diarrhea, Denies nausea and Denies vomiting Genitourinary Genitourinary: Denies hematuria, Denies flank pain, Denies urinary incontinence and Denies urinary urgency Musculoskeletal Musculoskeletal: Denies back pain, Reports arthralgias, Reports limited range of motion, Denies muscle weakness, Denies neck pain, Denies numbness and Denies tingling Integumentary/Breasts Skin/Breast: Denies pruritus, Denies erythema, Denies rash and Denies wounds Neurologic Neurologic: Denies behavioral changes, Denies confusion, Denies dizziness, Denies frequent falls, Denies loss of vision, Denies numbness, Denies tingling and Denies weakness Psychiatric Psychiatric: Denies anxiety, Denies behavioral changes, Denies confusion, Denies depression, Denies homicidal ideation and Denies suicidal ideation Endocrine Endocrine: Denies fatigue, Denies flushing and Denies palpitations Hematologic/Lymphatic Hematologic/Lymphatic: Denies easy bruising Allergic/Immunologic Allergic/Immunologic: Denies urticaria, Denies throat swelling and Denies wheezing Patient History Social History household members: none Smoking Status: Current every day smoker alcohol intake: never alcohol intake frequency: 0-2 drinks per day Substance Use Type: marijuana Exam Narrative Exam Narrative: GEN: AOx3 and in mild distress EYES: Pupils are equal, round, and reactive to light and accommodation. Extraoccular muscles are intact bilaterally. There is no subconjunctival hemorrhage or exudate. CHEST: Lungs are clear to auscultation bilaterally and free of wheezes, rales, or rhonchi. Heart rate is regular rhythm, there are no murmurs, clicks, rubs, or gallops. There is no chest wall tenderness. ABD: Abdomen is soft and nontender. There is no guarding or rebound. Bowel sounds are normal in all 4 quadrants. There is no mass or organomegaly. EXT: Full but painful range of motion of the left shoulder. She has full strength, sensation. She has tenderness at the biceps tendon and increasing pain with the empty can tests suggesting a supraspinatus injury. SKIN: Warm, pink, and dry. No erythema or rash Initial Vital Signs Initial Vital Signs: Vital Signs Temperature 97.3 F L 04/03/19 03:00 Pulse Rate 92 H 04/03/19 03:00 Respiratory Rate 14 04/03/19 03:00 Blood Pressure 144/106 H 04/03/19 03:00 Procedures Orthopedic Splinting/Casting Injury #1: Side: left Upper Extremity Injury Location: shoulder Upper Extremity Immobilizer: sling/shoulder immobilizer Post splinting neuro exam: intact Post splinting vascular exam: intact Placed by: Nursing Course Orders Ordered: Discontinued Medications Ibuprofen (Advil) 800 mg PO NOW ONE Stop: 04/03/19 03:07 Last Admin: 04/03/19 03:13 Dose: 800 mg Documented by: RITA Vital Signs Vital signs: Vital Signs - 8 hr 04/03/19 03:00 Temperature 97.3 F L Pulse Rate 92 H Respiratory Rate 14 Blood Pressure 144/106 H Discharge Plan Departure Patient Disposition: Home Clinical Impression: Acute shoulder pain Qualifiers: Laterality: left Qualified Code(s): M25.512 - Pain in left shoulder Discharge Date/Time: 04/03/19 03:20 Instructions: DI for Shoulder Pain Activity Restrictions/Additional Instructions: *You have been diagnosed with [acute left shoulder pain, likely rotator cuff] *What to do: *Take medications as directed *Follow up with your primary care provider in 2-3 days, call for an appointment. Let them know you were seen in the Emergency Department and that we ask that you be seen in follow up. If you do not have a doctor please consider contacting the physician hotline added below. I've also given you the info for the orthopedist resource room special education teacher. *Return to ER if you should have any new, worsening or concerning symptoms Prescriptions: New ketorolac 10 mg tablet 10 mg PO Q6H PRN (Reason: pain) Qty: 14 RF: 0 No Action ondansetron HCl 4 mg tablet 4 mg PO Q6H PRN (Reason: nausea and vomiting) Qty: 10 RF: 0 naproxen 500 mg tablet 500 mg PO Q12H PRN (Reason: pain) Qty: 10 RF: 0 Referrals: [facility] [Outside] Preston Mena MD [Physician] -
== END 2019-04-03 03:20 | disposition home or self-care (01) ==
PROVIDERS: Emergency Provider Emergency Medicine
DX: M25.512 Pain in left shoulder (principal)
CPT/HCPCS: 99282; 99283

== ENCOUNTER 2019-04-24 18:25 | Emergency (ER) | payer OTHER, MEDICAID, SELFPAY ==
[2017-11-26 12:43] VITALS: BMI 21.9
[2019-04-24 18:29] VITALS: BP 157/108; PULSE 82; RESP 16; TEMP 36.3; O2SAT 100; BMI 21.9
[2019-04-24] MEDS: BUPIVACAINE 0.5% W/ EPI (PF) VIAL 5 ML SUBCUT (19:00)
--- NOTE | 2019-04-24 19:23 | ED.DENTAL ---
HPI - Dental/Oral General Chief complaint: Dental/Oral Stated complaint: tooth ache, head ache Time Seen by Provider: 04/24/19 18:29 Source: patient Mode of arrival: Ambulatory Limitations: no limitations History of Present Illness HPI Narrative: 44-year-old female smoker with noncontributory medical history presents with a chief complaint of severe left sided jaw pain with perceived swelling. She has had no fever or chills. She is not dizzy nor weak or lightheaded. She had to has no difficulty in swallowing. She has 2 known fractured teeth and has been trying to get in with a dentist. She has tried Tylenol and Motrin without much in the way of relief MD Complaint: tooth pain Teeth map: 1. Onset (ago): day(s) Duration: constant Severity: severe Relieving factors: nothing Exacerbating factors: chewing, cold, heat and drinking fluids Context: history of dental caries Treatment prior to arrival: oral analgesic Related Data Previous Rx's Medication Instructions Recorded naproxen 500 mg PO Q12H PRN #10 tab 11/27/17 ondansetron HCl 4 mg PO Q6H PRN #10 tab 11/27/17 ketorolac 10 mg PO Q6H PRN #14 tab 04/03/19 amoxicillin-pot clavulanate 1 tab PO BID #20 tab 04/24/19 [Augmentin] hydrocodone-acetaminophen 1 tab PO Q4-6H PRN #4 tab 04/24/19 ketorolac 10 mg PO Q6H PRN #14 tab 04/24/19 Allergies Allergy/AdvReac Type Severity Reaction Status Date / Time erythromycin base Allergy Unknown Verified 04/24/19 18:38 [ERYTHROMYCIN BASE] Sulfa (Sulfonamide Allergy Unknown Verified 04/24/19 18:38 Antibiotics) [SULFA (SULFONAMIDE ANTIBIOTICS)] Review of Systems Constitutional Constitutional: Denies chills, Denies fatigue, Denies fever(s), Denies frequent falls, Denies lethargy and Denies weakness Eyes Eyes: Denies change in vision, Denies eye discharge, Denies irritation and Denies loss of vision ENT Ears, Nose, Mouth, and Throat: Denies change in voice, Reports dental pain, Denies dizziness, Reports facial pain, Denies neck pain, Denies sore throat and Denies throat swelling Cardiovascular Cardiovascular: Denies chest pain, Denies irregular heart rhythm, Denies lightheadedness, Denies palpitations, Denies dyspnea, Denies dyspnea on exertion and Denies orthopnea Respiratory Respiratory: Denies cough, Denies dyspnea, Denies dyspnea on exertion and Denies wheezing Gastrointestinal Gastrointestinal: Denies abdominal pain, Denies change in bowel habits, Denies diarrhea, Denies nausea and Denies vomiting Genitourinary Genitourinary: Denies hematuria, Denies flank pain, Denies urinary incontinence and Denies urinary urgency Musculoskeletal Musculoskeletal: Denies back pain, Denies muscle weakness, Denies neck pain, Denies numbness and Denies tingling Integumentary/Breasts Skin/Breast: Denies pruritus, Denies erythema, Denies rash and Denies wounds Neurologic Neurologic: Denies behavioral changes, Denies confusion, Denies dizziness, Denies frequent falls, Denies loss of vision, Denies numbness, Denies tingling and Denies weakness Psychiatric Psychiatric: Denies anxiety, Denies behavioral changes, Denies confusion, Denies depression, Denies homicidal ideation and Denies suicidal ideation Endocrine Endocrine: Denies fatigue, Denies flushing and Denies palpitations Hematologic/Lymphatic Hematologic/Lymphatic: Denies easy bruising Allergic/Immunologic Allergic/Immunologic: Denies urticaria, Denies throat swelling and Denies wheezing Patient History Social History household members: none Smoking Status: Current every day smoker alcohol intake: never alcohol intake frequency: 0-2 drinks per day Substance Use Type: marijuana Exam Narrative Exam Narrative: GEN: AOx3 and in mild distress, tearful, upset, holding the left side of her face HEAD: no facial swelling, redness, warmth EYES: Pupils are equal, round, and reactive to light and accommodation. Extraoccular muscles are intact bilaterally. There is no subconjunctival hemorrhage or exudate. ORAL: poor dentition throughout, no obvious abscess. Fractures. CHEST: Lungs are clear to auscultation bilaterally and free of wheezes, rales, or rhonchi. Heart rate is regular rhythm, there are no murmurs, clicks, rubs, or gallops. There is no chest wall tenderness. ABD: Abdomen is soft and nontender. There is no guarding or rebound. Bowel sounds are normal in all 4 quadrants. There is no mass or organomegaly. EXT: Full painless ROM of all extremities with no loss of sensation or strength. SKIN: Warm, pink, and dry. No erythema or rash Initial Vital Signs Initial Vital Signs: Vital Signs Temperature 97.4 F L 04/24/19 18:29 Pulse Rate 82 04/24/19 18:29 Respiratory Rate 16 04/24/19 18:29 Blood Pressure 157/108 H 04/24/19 18:29 Pulse Oximetry 100 04/24/19 18:29 Procedures Nerve Block Nerve Block 1: Time out performed: Yes Local Anesthetic: bupivacaine 0.25% and with epi Amount of anesthesia used (mL): 6 Side: left Intraoral Nerve Block: inferior alveolar Procedure Successful: Yes Patient Tolerated Procedure: Well Complications: none Course Orders Ordered: Discontinued Medications Bupivacaine HCl/Epinephrine Bitart (Sensorcaine 0.5% W/ Epi (Pf)) 5 ml SUBCUT NOW ONE Stop: 04/24/19 18:44 Last Admin: 04/24/19 19:00 Dose: 5 ml Documented by: ANGELINA Vital Signs Vital signs: Vital Signs - 8 hr 04/24/19 18:29 Temperature 97.4 F L Pulse Rate 82 Respiratory Rate 16 Blood Pressure 157/108 H Pulse Oximetry 100 Discharge Plan Departure Patient Disposition: Home Clinical Impression: Chronic dental pain Discharge Date/Time: 04/24/19 19:22 Instructions: DI for Dental Pain Activity Restrictions/Additional Instructions: *You have been diagnosed with [dental pain, likely exposed root] *What to do: *Take medications as directed *Follow up with your primary care provider in 2-3 days, call for an appointment. Let them know you were seen in the Emergency Department and that we ask that you be seen in follow up *Return to ER if you should have any new, worsening or concerning symptoms, such as [shaking chills, fever greater than 101 F, significant facial swelling] Prescriptions: New amoxicillin-pot clavulanate [Augmentin] 875-125 mg tablet 1 tab PO BID Qty: 20 RF: 0 hydrocodone-acetaminophen 5-325 mg tablet 1 tab PO Q4-6H PRN (Reason: pain) Qty: 4 RF: 0 ketorolac 10 mg tablet 10 mg PO Q6H PRN (Reason: pain) Qty: 14 RF: 0 No Action ondansetron HCl 4 mg tablet 4 mg PO Q6H PRN (Reason: nausea and vomiting) Qty: 10 RF: 0 naproxen 500 mg tablet 500 mg PO Q12H PRN (Reason: pain) Qty: 10 RF: 0 ketorolac 10 mg tablet 10 mg PO Q6H PRN (Reason: pain) Qty: 14 RF: 0 Referrals: Hermelinda,Gopi, JH [Physician] -
== END 2019-04-24 19:22 | disposition home or self-care (01) ==
PROVIDERS: Emergency Provider Emergency Medicine
DX: K08.89 Other specified disorders of teeth and supporting structures (principal)
CPT/HCPCS: 64450; 99282; 99283

== ENCOUNTER 2020-06-09 15:05 | Emergency (ER) | payer OTHER, MEDICAID, SELFPAY ==
[2017-11-26 12:43] VITALS: BMI 21.9
[2020-06-09 15:10] VITALS: BP 153/93; PULSE 88; RESP 20; TEMP 36.7; O2SAT 97
--- NOTE | 2020-06-09 15:12 | ED.DENTAL ---
HPI - Dental/Oral General Chief complaint: Dental/Oral Stated complaint: facial swelling, dental pain Time Seen by Provider: 06/09/20 15:12 Related Data Previous Rx's Medication Instructions Recorded naproxen 500 mg PO Q12H PRN #10 tab 11/27/17 ondansetron HCl 4 mg PO Q6H PRN #10 tab 11/27/17 ketorolac 10 mg PO Q6H PRN #14 tab 04/03/19 amoxicillin-pot clavulanate 1 tab PO BID #20 tab 04/24/19 [Augmentin] hydrocodone-acetaminophen 1 tab PO Q4-6H PRN #4 tab 04/24/19 ketorolac 10 mg PO Q6H PRN #14 tab 04/24/19 Allergies Allergy/AdvReac Type Severity Reaction Status Date / Time erythromycin base Allergy Unknown Verified 04/24/19 18:38 [ERYTHROMYCIN BASE] Sulfa (Sulfonamide Allergy Unknown Verified 04/24/19 18:38 Antibiotics) [SULFA (SULFONAMIDE ANTIBIOTICS)] Patient History Social History household members: none Smoking Status: Current every day smoker alcohol intake: never Smoking Status: Current every day smoker alcohol intake frequency: 0-2 drinks per day Substance Use Type: marijuana Discharge Plan Departure Prescriptions: No Action amoxicillin-pot clavulanate [Augmentin] 875-125 mg tablet 1 tab PO BID Qty: 20 RF: 0 hydrocodone-acetaminophen 5-325 mg tablet 1 tab PO Q4-6H PRN (Reason: pain) Qty: 4 RF: 0 ketorolac 10 mg tablet 10 mg PO Q6H PRN (Reason: pain) Qty: 14 RF: 0 ondansetron HCl 4 mg tablet 4 mg PO Q6H PRN (Reason: nausea and vomiting) Qty: 10 RF: 0 naproxen 500 mg tablet 500 mg PO Q12H PRN (Reason: pain) Qty: 10 RF: 0 ketorolac 10 mg tablet 10 mg PO Q6H PRN (Reason: pain) Qty: 14 RF: 0
--- NOTE | 2020-06-09 15:21 | ED_ITS ---
HPI - Dental/Oral <MYRIAM Sarmiento - Last Filed: 06/09/20 16:03> General Chief complaint: Dental/Oral Stated complaint: facial swelling, dental pain Time Seen by Provider: 06/09/20 15:12 Source: patient Mode of arrival: Ambulatory History of Present Illness HPI Narrative: 45yo female with a history of dental issues, presents to the emergency department for left facial swelling and tooth pain that started mac roximately yesterday. Patient states she was seen earlier this year for something similar, she has some dental work scheduled at but has had anxiety going there due to COVID-19. Patient states she feels like there is pressure on the left side of her face. She denies any, diarrhea, chest pain shortness of breath, or any other concerns. Related Data Previous Rx's Medication Instructions Recorded naproxen 500 mg PO Q12H PRN #10 tab 11/27/17 ondansetron HCl 4 mg PO Q6H PRN #10 tab 11/27/17 ketorolac 10 mg PO Q6H PRN #14 tab 04/03/19 amoxicillin-pot clavulanate 1 tab PO BID #20 tab 04/24/19 [Augmentin] hydrocodone-acetaminophen 1 tab PO Q4-6H PRN #4 tab 04/24/19 ketorolac 10 mg PO Q6H PRN #14 tab 04/24/19 amoxicillin-pot clavulanate 1 tab PO BID 10 Days #20 tab 06/09/20 [Augmentin] Allergies Allergy/AdvReac Type Severity Reaction Status Date / Time erythromycin base Allergy Unknown Verified 04/24/19 18:38 [ERYTHROMYCIN BASE] Sulfa (Sulfonamide Allergy Unknown Verified 04/24/19 18:38 Antibiotics) [SULFA (SULFONAMIDE ANTIBIOTICS)] Review of Systems <MYRIAM Sarmiento - Last Filed: 06/09/20 16:03> Review of Systems Narrative: REVIEW OF SYSTEMS: GENERAL: Denies fever. HENT: No head trauma. Complains of left-sided facial swelling and dental pain, see HPI. CARDIOVASCULAR: No chest pain. RESPIRATORY: No cough. GASTROINTESTINAL: No nausea, vomiting, diarrhea, or constipation. GENITOURINARY: No flank pain. MUSCULOSKELETAL: No injury. INTEGUMENTARY: No rash. NEURO: No numbness or tingling. PSYCH: No behavior or mood changes. Patient History <MYRIAM Sarmiento - Last Filed: 06/09/20 16:03> Medical History Dental infection Social History household members: none Smoking Status: Current every day smoker alcohol intake: never Smoking Status: Current every day smoker alcohol intake frequency: 0-2 drinks per day Substance Use Type: marijuana Exam <MYRIAM Sarmiento - Last Filed: 06/09/20 16:03> Initial Vital Signs Initial Vital Signs: Vital Signs Temperature 98.1 F 06/09/20 15:10 Pulse Rate 88 06/09/20 15:10 Respiratory Rate 20 06/09/20 15:10 Blood Pressure 153/93 H 06/09/20 15:10 Pulse Oximetry 97 06/09/20 15:10 PHYSICAL EXAMINATION: GENERAL: Alert and awake, answers questions from flea. HENT: Normocephalic, atraumatic. Mild very light erythematous swelling noted to left cheek, tooth decay and gingivitis noted to left upper teeth with the worst noted at about #12 & #15. EYES: Conjunctiva pink, sclera white, no periorbital swelling. No discharge. CHEST: Normal to inspection and without deformities. CARDIOVASCULAR: Regular rate. RESPIRATORY: Normal respiratory rate, trachea midline, airway patent. No stridor, nasal flaring or accessory muscle use. Able to speak in full s entences. MUSCULOSKELETAL: Normal gait and coordination. Equal tone and mass bilaterally. EXTREMITIES: Moves all extremities. SKIN: Warm, dry, soft, appropriate color for ethnicity. No lesions, rashes, or wounds to visualized areas. NEURO: Alert and Oriented X 3. Good coordination. No ataxia or cognitive issues. PSYCH: Appropriate affect and mood. <Bess Mathias DO - Last Filed: 06/09/20 18:34> Initial Vital Signs Initial Vital Signs: Vital Signs Temperature 98.1 F 06/09/20 15:10 Pulse Rate 88 06/09/20 15:10 Respiratory Rate 20 06/09/20 15:10 Blood Pressure 153/93 H 06/09/20 15:10 Pulse Oximetry 97 06/09/20 15:10 Course <MYRIAM Sarmiento - Last Filed: 06/09/20 16:03> Course Course Narrative: Patient given Toradol to help with pain. Orders Ordered: Discontinued Medications Ketorolac Tromethamine (Ketorolac 60 Mg/2 Ml Vial) 30 mg IM NOW ONE Stop: 06/09/20 15:21 Last Admin: 06/09/20 15:42 Dose: 30 mg Documented by: BI Vital Signs Vital signs: Vital Signs - 8 hr 06/09/20 15:10 Temperature 98.1 F Pulse Rate 88 Respiratory Rate 20 Blood Pressure 153/93 H Pulse Oximetry 97 <Bess Mathias DO - Last Filed: 06/09/20 18:34> Orders Ordered: Discontinued Medications Ketorolac Tromethamine (Ketorolac 60 Mg/2 Ml Vial) 30 mg IM NOW ONE Stop: 06/09/20 15:21 Last Admin: 06/09/20 15:42 Dose: 30 mg Documented by: BI Vital Signs Vital signs: Vital Signs - 8 hr 06/09/20 15:10 Temperature 98.1 F Pulse Rate 88 Respiratory Rate 20 Blood Pressure 153/93 H Pulse Oximetry 97 MDM - Dental/Oral <Amparo MYRIAM Ruiz - Last Filed: 06/09/20 16:03> Medical Records Attestation: I reviewed the patient's medical records. Lab Data Attestation: I reviewed the patient's lab results. MDM Narrative Medical decision making narrative: History and examination concerning for dental abscess. Given swelling to left upper cheek which is closer to sinuses, Augmentin was prescribed. Toradol was given to help with pain. Patient is hemodynamically stable, afebrile and non tachycardic, no signs of severe or systemic infection. She was encouraged to follow up with her dentist to prevent the issue from returning. Patient was encouraged to return ED for any new or worsening symptoms especially fever, severe pain, continued swelling, or difficulty swallowing. She agreed to plan of care verbalized understanding. Discharge Plan Departure Patient Disposition: Home Clinical Impression: Dental infection Instructions: Tooth Abscess, DI for Dental Pain Activity Restrictions/Additional Instructions: Thank you for entrusting me with your care today. As discussed, I suspect your swelling is caused by dental infection. I prescribed you antibiotics, please take these as directed. Use Tylenol and ibuprofen as needed for pain. Please follow-up with a dentist as soon as possible to prevent the issue from returning. Return emergency department for any new or worsening symptoms such as chills, fever, uncontrollable vomiting, severe pain, severe swelling, or any other concerns. Prescriptions: New amoxicillin-pot clavulanate [Augmentin] 875-125 mg tablet 1 tab PO BID 10 Days Qty: 20 RF: 0 No Action amoxicillin-pot clavulanate [Augmentin] 875-125 mg tablet 1 tab PO BID Qty: 20 RF: 0 hydrocodone-acetaminophen 5-325 mg tablet 1 tab PO Q4-6H PRN (Reason: pain) Qty: 4 RF: 0 ketorolac 10 mg tablet 10 mg PO Q6H PRN (Reason: pain) Qty: 14 RF: 0 ondansetron HCl 4 mg tablet 4 mg PO Q6H PRN (Reason: nausea and vomiting) Qty: 10 RF: 0 naproxen 500 mg tablet 500 mg PO Q12H PRN (Reason: pain) Qty: 10 RF: 0 ketorolac 10 mg tablet 10 mg PO Q6H PRN (Reason: pain) Qty: 14 RF: 0 <Bess Mathias DO - Last Filed: 06/09/20 18:34> Cosign ED Attending Cosashantiature Attestation: I was immediately available in the department for consultation. Documentation has been reviewed.
[2020-06-09] MEDS: KETOROLAC 60 MG/2 ML VIAL 30 MG IM (15:42)
== END 2020-06-09 15:51 | disposition home or self-care (01) ==
PROVIDERS: Emergency Provider Nurse Practitioner
DX: K04.7 Periapical abscess without sinus (principal)
CPT/HCPCS: 96372; 99281; 99283; J1885

== ENCOUNTER 2020-06-10 09:49 | Emergency (ER) | payer OTHER, MEDICAID, SELFPAY ==
[2017-11-26 12:43] VITALS: BMI 21.9
[2020-06-10 09:59] VITALS: BP 141/81; PULSE 103; RESP 22; TEMP 36.9; O2SAT 96; BMI 21.9
--- NOTE | 2020-06-10 10:25 | ED.DENTAL ---
HPI - Dental/Oral <MYRIAM Sarmiento - Last Filed: 06/10/20 16:04> General Chief complaint: Dental/Oral Stated complaint: left upper tooth pain/here yest. Time Seen by Provider: 06/10/20 09:56 Source: patient Mode of arrival: Ambulatory Limitations: no limitations History of Present Illness HPI Narrative: 45yo female returns emergency department from a visit yesterday for continuing dental pain and increased left-sided facial swelling. Patient states that she did not feel or take her prescription yesterday has been the time she went to the pharmacy was closed. She states she woke up this morning and noticed increasing swelling to the left side of her cheek, she states her eye had clear watery discharge. She feels pressure in her ear but denies any discharge. Patient denies any fevers, nausea, vision changes, abdominal pain, dizziness, syncope, chest pain, or cough. Denies light sensitivity. Related Data Previous Rx's Medication Instructions Recorded naproxen 500 mg PO Q12H PRN #10 tab 11/27/17 ondansetron HCl 4 mg PO Q6H PRN #10 tab 11/27/17 ketorolac 10 mg PO Q6H PRN #14 tab 04/03/19 amoxicillin-pot clavulanate 1 tab PO BID #20 tab 04/24/19 [Augmentin] hydrocodone-acetaminophen 1 tab PO Q4-6H PRN #4 tab 04/24/19 ketorolac 10 mg PO Q6H PRN #14 tab 04/24/19 amoxicillin-pot clavulanate 1 tab PO BID 10 Days #20 tab 06/09/20 [Augmentin] Allergies Allergy/AdvReac Type Severity Reaction Status Date / Time erythromycin base Allergy Unknown Verified 04/24/19 18:38 [ERYTHROMYCIN BASE] Sulfa (Sulfonamide Allergy Unknown Verified 04/24/19 18:38 Antibiotics) [SULFA (SULFONAMIDE ANTIBIOTICS)] Review of Systems <MYRIAM Sarmiento - Last Filed: 06/10/20 16:04> Review of Systems Narrative: REVIEW OF SYSTEMS: GENERAL: Denies fever. HENT: No head trauma, hearing loss or sore throat. EYES: No loss of vision, double vision, eye pain, or irritation. CARDIOVASCULAR: No chest pain or syncope. RESPIRATORY: No shortness of breath or cough. GASTROINTESTINAL: No nausea, vomiting, diarrhea, or constipation. GENITOURINARY: No flank pain or dysuria. MUSCULOSKELETAL: No pain, weakness, or deformities. INTEGUMENTARY: No rash, lesions, or pruritus. NEURO: No numbness, tingling, memory loss, or confusion. PSYCH: No behavior or mood changes. Patient History <MYRIAM Sarmiento - Last Filed: 06/10/20 16:04> Medical History Dental infection Social History household members: none Smoking Status: Current every day smoker alcohol intake: never Smoking Status: Current every day smoker alcohol intake frequency: 0-2 drinks per day Substance Use Type: marijuana Exam <MYRIAM Sarmiento - Last Filed: 06/10/20 16:04> Initial Vital Signs Initial Vital Signs: Vital Signs Temperature 98.4 F 06/10/20 09:59 Pulse Rate 103 H 06/10/20 09:59 Respiratory Rate 22 06/10/20 09:59 Blood Pressure 141/81 H 06/10/20 09:59 Pulse Oximetry 96 06/10/20 09:59 PHYSICAL EXAMINATION: GENERAL: Awake and alert, appears to be in moderate pain. HENT: Normocephalic, atraumatic. Moderate swelling noted to left zygomatic area, very slight erythema noted to skin, moderate amount of swelling noted under left eye. Tenderness to left maxilla sinuses with palpation. TMs intact with crisp light reflex. EYES: Left eye with clear watery discharge. PERRLA, EOMIs, Conjunctiva pink, sclera white, no periorbital swelling. RESPIRATORY: Normal respiratory rate, trachea midline, airway patent. No stridor, nasal flaring or accessory muscle use. MUSCULOSKELETAL: Normal gait and coordination. Equal tone and mass bilaterally. EXTREMITIES: CMS intact. Moves all extremities. SKIN: Warm, dry, soft, appropriate color for ethnicity. No lesions, rashes, or wounds. NEURO: Alert and Oriented X 3. Good coordination. No ataxia, or sensory deficits, or cognitive issues. PSYCH: Appropriate affect and mood. <Marianne Mead MD - Last Filed: 06/11/20 07:33> Initial Vital Signs Initial Vital Signs: Vital Signs Temperature 98.4 F 06/10/20 09:59 Pulse Rate 103 H 06/10/20 09:59 Respiratory Rate 22 06/10/20 09:59 Blood Pressure 141/81 H 06/10/20 09:59 Pulse Oximetry 96 06/10/20 09:59 Course <MYRIAM Sarmiento - Last Filed: 06/10/20 16:04> Course Course Narrative: Patient given pain medication and 1st dose of antibiotics in the emergency department. Friend at bedside, discussed the importance of filling prescription. Both friend and patient verbalized understanding of the importance of filling prescriptions. Orders Ordered: Discontinued Medications Hydrocodone Bitart/Acetaminophen (Hydrocodone/Acet 5/325 Tablet) 1 tab PO NOW ONE Stop: 06/10/20 10:25 Last Admin: 06/10/20 10:28 Dose: 1 tab Documented by: CHAN Amoxicillin/Clavulanate Potassium (Amoxicillin/Clav 875/125 Mg) 1 tab PO NOW ONE Stop: 06/10/20 10:23 Last Admin: 06/10/20 10:28 Dose: 1 tab Documented by: CHAN Consultations Consultation #1: Discussed patient's presentation and plan of care with Dr. Mead. Vital Signs Vital signs: Vital Signs - 8 hr 06/10/20 09:59 06/10/20 11:09 Temperature 98.4 F Pulse Rate 103 H 89 Respiratory Rate 22 14 Blood Pressure 141/81 H 126/74 Pulse Oximetry 96 98 <Marianne Mead MD - Last Filed: 06/11/20 07:33> Orders Ordered: Discontinued Medications Hydrocodone Bitart/Acetaminophen (Hydrocodone/Acet 5/325 Tablet) 1 tab PO NOW ONE Stop: 06/10/20 10:25 Last Admin: 06/10/20 10:28 Dose: 1 tab Documented by: HCAN Amoxicillin/Clavulanate Potassium (Amoxicillin/Clav 875/125 Mg) 1 tab PO NOW ONE Stop: 06/10/20 10:23 Last Admin: 06/10/20 10:28 Dose: 1 tab Documented by: CHAN Vital Signs Vital signs: Vital Signs - 8 hr 06/10/20 09:59 06/10/20 11:09 Temperature 98.4 F Pulse Rate 103 H 89 Respiratory Rate 22 14 Blood Pressure 141/81 H 126/74 Pulse Oximetry 96 98 MDM - Dental/Oral <MYRIAM Sarmiento - Last Filed: 06/10/20 16:04> Medical Records Attestation: I reviewed the patient's medical records. Lab Data Attestation: I reviewed the patient's lab results. [facility] Narrative Medical decision making narrative: History and examination concerning for tooth infection. The swelling has increased since a seen the patient yesterday. However, I suspect this is most likely due to the fact that she did not take any antibiotics since seen yesterday and she has been sleeping which increases swelling to the area. It is only lightly erythematous. Patient's conjunctiva is not injected, does not appear to be infected. Watery discharge from eyes most likely due to the pressure that swelling causes on the left lacrimal duct. No airway compromise. Patient was given a dose of pain medication and antibiotics in the emergency department. They discussed a plan to fill the antibiotics immediately after discharge. Patient was encouraged to follow up with dentist. She agreed to plan of care verbalized understanding. Discharge Plan Departure Patient Disposition: Home Clinical Impression: Dental infection Instructions: DI for Dental Pain Activity Restrictions/Additional Instructions: Thank you for entrusting me with your care today. As discussed, please fill and take your Augmentin that was prescribed yesterday. Your given your dose for this morning, take in other dose this evening. The swelling should subside after a few days, it may be worse in the morning after you wake up or later on today. The swelling can cause your eye to water, use a warm compress to this area to help with pain and swelling. I recommend following up with a dentist as soon as possible. Return emergency department for any new or worsening symptoms. Prescriptions: No Action amoxicillin-pot clavulanate [Augmentin] 875-125 mg tablet 1 tab PO BID Qty: 20 RF: 0 hydrocodone-acetaminophen 5-325 mg tablet 1 tab PO Q4-6H PRN (Reason: pain) Qty: 4 RF: 0 ketorolac 10 mg tablet 10 mg PO Q6H PRN (Reason: pain) Qty: 14 RF: 0 ondansetron HCl 4 mg tablet 4 mg PO Q6H PRN (Reason: nausea and vomiting) Qty: 10 RF: 0 naproxen 500 mg tablet 500 mg PO Q12H PRN (Reason: pain) Qty: 10 RF: 0 ketorolac 10 mg tablet 10 mg PO Q6H PRN (Reason: pain) Qty: 14 RF: 0 amoxicillin-pot clavulanate [Augmentin] 875-125 mg tablet 1 tab PO BID 10 Days Qty: 20 RF: 0 <Marianne Mead MD - Last Filed: 06/11/20 07:33> Cosign ED Attending Cosignature Attestation: I was immediately available in the department for consultation throughout this patient's visit. I agree with documentation as above. Marianne Mead MD
[2020-06-10] MEDS: HYDROCODONE/ACET 5/325 TABLET 1 TAB PO (10:28)
[2020-06-10] MEDS: AMOXICILLIN/CLAV 875/125 MG 1 TAB PO (10:28)
[2020-06-10 11:09] VITALS: BP 126/74; PULSE 89; RESP 14; O2SAT 98
== END 2020-06-10 11:15 | disposition home or self-care (01) ==
PROVIDERS: Emergency Provider Nurse Practitioner
DX: K04.7 Periapical abscess without sinus (principal)
CPT/HCPCS: 99281; 99283

== ENCOUNTER 2021-03-17 21:11 | Emergency (ER) | payer OTHER, MEDICAID, SELFPAY ==
[2017-11-26 12:43] VITALS: BMI 21.9
[2021-03-17 21:19] VITALS: BP 111/70; PULSE 96; RESP 18; TEMP 36.6; O2SAT 97
--- NOTE | 2021-03-17 21:22 | DI.RAD.S_ITS ---
PROCEDURE: XR RIBS RT MIN 3V W CXR 1V INDICATIONS: fall, right sided pain TECHNIQUE: 2 views of the right ribs were acquired, along with a single view chest. COMPARISON: None. FINDINGS: Surgical changes and devices: None. Bones and chest wall: No fractures or dislocations. No suspicious bony lesions. Overlying soft tissues appear unremarkable. Lungs and pleura: No pleural effusions or pneumothorax. Lungs appear clear. Mediastinum: Mediastinal contours appear normal. Heart size is normal. IMPRESSION: No displaced rib fracture. No acute cardiopulmonary disease process. Dictated by: Naz Swift MD, PhD on 03/17/2021 at 21:50 Approved by: Naz Swift MD, PhD on 03/17/2021 at 21:50
--- NOTE | 2021-03-17 22:47 | ED.FALL ---
HPI - Fall General Chief Complaint: Fall Stated Complaint: rt sided pain s/p fall Time Seen by Provider: 03/17/21 22:47 Source: patient Mode of arrival: Ambulatory Limitations: no limitations History of Present Illness HPI Narrative: This is a 46-year-old female comes to the emergency department with right-sided rib pain. Patient states yesterday she was splitting wood with a log splitter and pushing the locks up to the side. She tripped and fell onto her right side. Patient states she has had pain with movement, deep inhalation and cough. She denies any injury elsewhere. She denies any skin changes or bruising. She denies any other injuries. She denies any anticoagulants. She does not take any daily medications besides a multivitamin. She denies any major medical issues. Patient denies fevers, chills, no cold cough or congestion or other symptoms. No other GI or urinary symptoms. She does work doing [employer]. Related Data Previous Rx's Medication Instructions Recorded naproxen 500 mg tablet 500 mg PO Q12H PRN #10 tab 11/27/17 ondansetron HCl 4 mg tablet 4 mg PO Q6H PRN #10 tab 11/27/17 ketorolac 10 mg tablet 10 mg PO Q6H PRN #14 tab 04/03/19 amoxicillin 875 mg-potassium 1 tab PO BID #20 tab 04/24/19 clavulanate 125 mg tablet (Augmentin) hydrocodone 5 mg-acetaminophen 325 1 tab PO Q4-6H PRN #4 tab 04/24/19 mg tablet ketorolac 10 mg tablet 10 mg PO Q6H PRN #14 tab 04/24/19 hydrocodone 5 mg-acetaminophen 325 1 tab PO Q6H PRN #10 tab 03/17/21 mg tablet Allergies Allergy/AdvReac Type Severity Reaction Status Date / Time erythromycin base Allergy Unknown Verified 04/24/19 18:38 [ERYTHROMYCIN BASE] Sulfa (Sulfonamide Allergy Unknown Verified 04/24/19 18:38 Antibiotics) [SULFA (SULFONAMIDE ANTIBIOTICS)] Review of Systems Review of Systems ROS Unobtainable: All systems reviewed & are unremarkable except as noted in HPI and below Patient History Medical History Dental infection Social History household members: none Smoking Status: Current every day smoker alcohol intake: never Smoking Status: Current every day smoker alcohol intake frequency: 0-2 drinks per day Substance Use Type: marijuana Exam Narrative Exam Narrative: GEN: well nourished, well appearing female, alert and oriented x 3, patient appears to be in mild distress. HEENT: Atraumatic, pupils are equal round reactive to light, extraocular movements are intact. Throat is clear without any exudates, erythema, tonsillar enlargement or uvular deviation HEART: Regular rate and rhythm without murmur, clicks, rubs. LUNGS:Lungs clear to auscultation, no wheezes, rales, crackles, chest moves symmetrically, patient is tender in the right ribs. No obvious deformity. She has symmetrical movement. ABD:bowel sounds normal, soft, non-tender, no guarding, rebound, rigidity, no masses noted, no hepatosplenomegaly :No CVA tenderness MSCL: Non-tender, no muscle atrophy, muscles strength 5/5 upper and lower extremities, full range of motion, normal gait NEURO:CN 2-12 intact, sensation normal SKIN: No rash, erythema, ecchymosis or skin changes noted. Initial Vital Signs Initial Vital Signs: Vital Signs Temperature 97.9 F 03/17/21 21:19 Pulse Rate 96 H 03/17/21 21:19 Respiratory Rate 18 03/17/21 21:19 Blood Pressure 111/70 03/17/21 21:19 Pulse Oximetry 97 03/17/21 21:19 Course Orders Ordered: ED Orders 03/17/21 21:22 XR ribs RT min 3V w CXR1V Stat Discontinued Medications Hydrocodone Bitart/Acetaminophen (Hydrocodone/Acet 5/325 Prepack) 1 bottle MISC SEEINSTR ONE Stop: 03/17/21 23:10 Last Admin: 03/17/21 23:25 Dose: 1 bottle Documented by: RODRÍGUEZ Vital Signs Vital signs: Vital Signs - 8 hr 03/17/21 21:19 03/17/21 23:30 Temperature 97.9 F Pulse Rate 96 H 91 H Respiratory Rate 18 20 Blood Pressure 111/70 Pulse Oximetry 97 97 MDM - Fall Imaging Data Chest x-ray: Radiologist's Impression: [address] [address] XRay Report Signed Patient: Varsha Jung MR#: [id number] : 1975 Acct:[id number] Age/Sex: 46 / F Date of Service: 03/17/21 Loc: ED Accession Number: [id number] ?? Procedure: XR ribs RT min 3V w CXR1V Ordering Provider: Bess Mathias D.O. PROCEDURE:? XR RIBS RT MIN 3V W CXR 1V ? INDICATIONS:? fall, right sided pain ? TECHNIQUE:? 2 views of the right ribs were acquired, along with a single view chest.? ? COMPARISON:? None. ? FINDINGS:? ? Surgical changes and devices:? None.? ? Bones and chest wall:? No fractures or dislocations.? No suspicious bony lesions.? Overlying soft tissues appear unremarkable.? ? Lungs and pleura:? No pleural effusions or pneumothorax.? Lungs appear clear.? ? Mediastinum:? Mediastinal contours appear normal.? Heart size is normal.? ? IMPRESSION:? No displaced rib fracture. No acute cardiopulmonary disease process. ? ? Dictated by: Naz Swift MD, PhD on 03/17/2021 at 21:50 ? ? Approved by: Naz Swift MD, PhD on 03/17/2021 at 21:50?? [facility] Narrative Medical decision making narrative: Patient is patient's exam. She may have a contusion but may possibly have a nondisplaced rib fracture she is not clearly visualized on x-ray. Plan for incentive spirometer, pain control and return precautions discussed. Patient's exam is otherwise reassuring with vitals appropriate in the department. All questions answered. Return precautions discussed with the patient Discharge Plan Departure Patient Disposition: Home Clinical Impression: Contusion of rib on right side Instructions: DI for Rib Fracture Activity Restrictions/Additional Instructions: You do not have obvious fractures/break of the ribs on xray but sometimes you can have small nondisplaced fractures. Use incentive spirometer once hourly while awake. You may take Tylenol up to a 1000 mg every 8 hours as needed for pain and/or ibuprofen up to 800 mg every 8 hours as needed. If this is an adequate you may substitute narcotic pain medication for the Tylenol. Both medications have Tylenol do not take more than 3000 mg in 24 hours. You may take 1 tablet every 6 hours as needed for pain. This medication can make you sleepy do not drive, perform hazardous activities or make any major decisions while taking it. This medication will make you constipated please take a stool softener once to twice daily until stools are soft and regular. Prescription sent to [facility] in [place]. Please return for new or worsening chest pain shortness of breath, lightheadedness or passing out, coughing up blood, new skin changes of bruising, new abdominal, back or flank pain or other new or concerning symptoms. Prescriptions: New hydrocodone-acetaminophen 5-325 mg tablet 1 tab PO Q6H PRN (Reason: pain) Qty: 10 RF: 0 No Action amoxicillin-pot clavulanate [Augmentin] 875-125 mg tablet 1 tab PO BID Qty: 20 RF: 0 hydrocodone-acetaminophen 5-325 mg tablet 1 tab PO Q4-6H PRN (Reason: pain) Qty: 4 RF: 0 ketorolac 10 mg tablet 10 mg PO Q6H PRN (Reason: pain) Qty: 14 RF: 0 ondansetron HCl 4 mg tablet 4 mg PO Q6H PRN (Reason: nausea and vomiting) Qty: 10 RF: 0 naproxen 500 mg tablet 500 mg PO Q12H PRN (Reason: pain) Qty: 10 RF: 0 ketorolac 10 mg tablet 10 mg PO Q6H PRN (Reason: pain) Qty: 14 RF: 0 Stand Alone Forms: Work Release Note
[2021-03-17] MEDS: HYDROCODONE/ACET 5/325 PREPACK 1 BOTTLE MISC (23:25)
[2021-03-17 23:30] VITALS: PULSE 91; RESP 20; O2SAT 97
== END 2021-03-17 23:48 | disposition home or self-care (01) ==
PROVIDERS: Emergency Provider Emergency Medicine
DX: S20.211A Contusion of right front wall of thorax, initial encounter (principal); W18.30XA Fall on same level, unspecified, initial encounter
CPT/HCPCS: 71101; 99281; 99283

== ENCOUNTER 2022-06-23 21:17 | Emergency (ER) | payer OTHER, MEDICAID, SELFPAY ==
[2017-11-26 12:43] VITALS: BMI 21.9
[2022-06-23 21:21] VITALS: BP 110/82; PULSE 96; RESP 20; TEMP 36.5; O2SAT 99; BMI 21.2
[2022-06-23 21:55] VITALS: BP 117/80; PULSE 85; O2SAT 99
[2022-06-23 22:00] VITALS: PULSE 82; O2SAT 97
--- NOTE | 2022-06-23 22:17 | ED_ITS ---
HPI - Back Pain/Injury General Chief Complaint: Back Pain/Injury Stated Complaint: bad back pain Time Seen by Provider: 06/23/22 22:08 Source: patient Mode of arrival: Ambulatory Limitations: no limitations History of Present Illness HPI Narrative: Patient is a 39-year-old female who is here for evaluation of right-sided lower back pain that is radiating down into the upper portion of her leg. Has been going on for the past several weeks. She feels it is because she is been sleeping on an uncomfortable mattress. She did try a pain medication at home prior to arrival without any improvement. No bowel or bladder dysfunction. No fevers. No specific injury. Does cause quite a bit of discomfort with palpation and movement. Related Data Previous Rx's Medication Instructions Recorded naproxen 500 mg tablet 500 mg PO Q12H PRN pain #10 tabs 11/27/17 ondansetron HCl 4 mg tablet 4 mg PO Q6H PRN nausea and 11/27/17 vomiting #10 tabs ketorolac 10 mg tablet 10 mg PO Q6H PRN pain #14 tabs 04/03/19 amoxicillin 875 mg-potassium 1 tab PO BID #20 tabs 04/24/19 clavulanate 125 mg tablet (Augmentin) hydrocodone 5 mg-acetaminophen 325 1 tab PO Q4-6H PRN pain #4 tabs 04/24/19 mg tablet ketorolac 10 mg tablet 10 mg PO Q6H PRN pain #14 tabs 04/24/19 hydrocodone 5 mg-acetaminophen 325 1 tab PO Q6H PRN pain #10 tabs 03/17/21 mg tablet cyclobenzaprine 10 mg tablet 10 mg PO TID PRN muscle spasm #20 06/23/22 tabs prednisone 20 mg tablet 20 mg PO DAILY 7 days #7 tabs 06/23/22 Allergies Allergy/AdvReac Type Severity Reaction Status Date / Time erythromycin base Allergy Unknown Vomiting Verified 06/23/22 21:29 [ERYTHROMYCIN BASE] Sulfa (Sulfonamide Allergy Unknown Swelling Verified 06/23/22 21:29 Antibiotics) of [SULFA (SULFONAMIDE Lip/Tongue/Throat ANTIBIOTICS)] Review of Systems Gastrointestinal Gastrointestinal: Reports system reviewed and no additional complaints, except as documented Genitourinary Genitourinary: Reports system reviewed and no additional complaints, except as documented Musculoskeletal Musculoskeletal: Reports system reviewed and no additional complaints, except as documented Neurologic Neurologic: Reports system reviewed and no additional complaints, except as documented Patient History Medical History Dental infection Social History household members: none Smoking Status: Current every day smoker alcohol intake: never Smoking Status: Current every day smoker alcohol intake frequency: 0-2 drinks per day Substance Use Type: marijuana Exam Initial Vital Signs Initial Vital Signs: Vital Signs Temperature 97.7 F 06/23/22 21:21 Pulse Rate 96 H 06/23/22 21:21 Respiratory Rate 20 06/23/22 21:21 Blood Pressure 110/82 06/23/22 21:21 Pulse Oximetry 99 06/23/22 21:21 Oxygen Delivery Method 06/23/22 21:21 Const General: cooperative and comfortable HENMT Head: normal to inspection and normocephalic Back/Spine/Pelvis Thoracic/Lumbar Spine: paraspinal tenderness (Lumbar region right) Sacroiliac Joints: tender to palpation right Extrem General: normal to inspection Course Orders Ordered: Discontinued Medications Hydromorphone HCl (Hydromorphone 1 Mg Inj) 1 mg IM NOW ONE Stop: 06/23/22 22:18 Last Admin: 06/23/22 22:26 Dose: 1 mg Documented By: AT Ketorolac Tromethamine (Ketorolac 30 Mg/Ml Vial) 30 mg IM NOW ONE Stop: 06/23/22 22:18 Last Admin: 06/23/22 22:26 Dose: 30 mg Documented By: AT Vital Signs Vital signs: Vital Signs - 8 hr 06/23/22 21:21 06/23/22 21:55 06/23/22 22:00 Temperature 97.7 F Pulse Rate 96 H 85 82 Respiratory Rate 20 Blood Pressure 110/82 117/80 Pulse Oximetry 99 99 97 Oxygen Delivery Method Room Air Room Air 06/23/22 22:30 06/23/22 22:46 Temperature 97.8 F Pulse Rate 87 78 Respiratory Rate 16 Blood Pressure 110/65 Pulse Oximetry 98 Oxygen Delivery Method Room Air MDM - Back Pain/Injury Differential Diagnosis Differential diagnosis: Likely lumbar radiculopathy, sciatica, strain of lumbar region, pyelonephritis, discitis and other Condition is:: Well Controlled Chronic Condition is having:: Moderate exacerbation MDM Narrative Medical decision making narrative: No specific injury that caused her symptoms. Has been progressively worsening over the past several days/weeks. No red flag symptoms that would make me yaritza rned for fracture, cauda equina, abscess or hematoma. Will treat symptoms for now. Patient was given return precautions. She did expressed understanding and agreement. Discharge Plan Departure Patient Disposition: Home Clinical Impression: Back pain Instructions: DI for Low Back Pain Activity Restrictions/Additional Instructions: A prescription for muscle relaxers and a short course of steroids was sent to the pharmacy of your choice. Please take them as directed. Also recommend that you continue with anti-inflammatories such as Motrin/ibuprofen or Naprosyn. You can also tried lidocaine patches. You can purchase these [id number]. I do recommend you contact your primary doctor as he may need more advanced imaging such as an MRI if your symptoms do not improve over the next several weeks and with the treatments that we started today. Prescriptions: New cyclobenzaprine 10 mg tablet 10 mg PO TID PRN (Reason: muscle spasm) Qty: 20 0RF prednisone 20 mg tablet 20 mg PO DAILY 7 Days Qty: 7 0RF No Action amoxicillin-pot clavulanate [Augmentin] 875-125 mg tablet 1 tab PO BID Qty: 20 0RF hydrocodone-acetaminophen 5-325 mg tablet 1 tab PO Q4-6H PRN (Reason: pain) Qty: 4 0RF ketorolac 10 mg tablet 10 mg PO Q6H PRN (Reason: pain) Qty: 14 0RF ondansetron HCl 4 mg tablet 4 mg PO Q6H PRN (Reason: nausea and vomiting) Qty: 10 0RF naproxen 500 mg tablet 500 mg PO Q12H PRN (Reason: pain) Qty: 10 0RF Rx Instructions: administer with food or milk ketorolac 10 mg tablet 10 mg PO Q6H PRN (Reason: pain) Qty: 14 0RF hydrocodone-acetaminophen 5-325 mg tablet 1 tab PO Q6H PRN (Reason: pain) Qty: 10 0RF Stand Alone Forms: Patient Portal/API
[2022-06-23] MEDS: KETOROLAC 30 MG/ML VIAL IM (22:26)
[2022-06-23] MEDS: HYDROMORPHONE 1 MG INJ IM (22:26)
[2022-06-23 22:30] VITALS: PULSE 87
[2022-06-23 22:46] VITALS: BP 110/65; PULSE 78; RESP 16; TEMP 36.6; O2SAT 98
== END 2022-06-23 23:01 | disposition home or self-care (01) ==
PROVIDERS: Emergency Provider Emergency Medicine
DX: M54.50 Low back pain, unspecified (principal)
CPT/HCPCS: 96372; 99283; J1170; J1885

== ENCOUNTER 2023-07-06 17:10 | Emergency (ER) | payer OTHER, MEDICAID, SELFPAY ==
[2017-11-26 12:43] VITALS: BMI 21.9
[2023-07-06 17:10] VITALS: BP 128/89; PULSE 108; RESP 16; TEMP 36.8; O2SAT 98; BMI 21.9
[2023-07-06] MEDS: MORPHINE 4 MG/ML INJ IM (17:35)
[2023-07-06] MEDS: KETOROLAC 30 MG/ML VIAL IM (17:35)
--- NOTE | 2023-07-06 18:12 | ED_ITS ---
HPI - Back Pain/Injury <Danyell Mariee PA-C - Last Filed: 07/06/23 18:52> General Chief Complaint: Back Pain/Injury Stated Complaint: back pain Time Seen by Provider: 07/06/23 17:20 Source: patient History of Present Illness HPI Narrative: Daphne is a 48-year-old female who presents with acute back pain. She reports no significant history of back pain, although chart review shows she was seen in the emergency room approximately 1 year ago for back pain. She notes 2-3 days of very mild low back pain for which she took ibuprofen once and tried an OTC lidocaine patch. Today she was working in her garden when she turned her upper body and suddenly had severe low back pain. The pain is pinching and sharp. She denies loss of bowel or bladder control, saddle anesthesia, inability to walk. There is no radiating pain. The pain is over her low back, left greater than right. Related Data Previous Rx's Medication Instructions Recorded naproxen 500 mg tablet 500 mg PO Q12H PRN pain #10 tabs 11/27/17 ondansetron HCl 4 mg tablet 4 mg PO Q6H PRN nausea and 11/27/17 vomiting #10 tabs cyclobenzaprine 10 mg tablet 10 mg PO TID PRN muscle spasm #10 07/06/23 tabs Allergies Allergy/AdvReac Type Severity Reaction Status Date / Time erythromycin base Allergy Unknown Vomiting Verified 07/06/23 17:23 [ERYTHROMYCIN BASE] Sulfa (Sulfonamide Allergy Unknown Swelling Verified 07/06/23 17:23 Antibiotics) of [SULFA (SULFONAMIDE Lip/Tongue/Throat ANTIBIOTICS)] Review of Systems <Danyell Mariee PA-C - Last Filed: 07/06/23 18:52> Review of Systems ROS Unobtainable: All systems reviewed & are unremarkable except as noted in HPI and below Patient History <Danyell Mariee PA-C - Last Filed: 07/06/23 18:52> Medical History Dental infection Social History household members: none Smoking Status: Current every day smoker alcohol intake: never Smoking Status: Current every day smoker alcohol intake frequency: 0-2 drinks per day Substance Use Type: marijuana Exam <Danyell Mariee PA-C - Last Filed: 07/06/23 18:52> Narrative Exam Narrative: GENERAL: 48 year old patient appears stated age. Well-developed patient, in moderate distress. NEURO: AOx3. HEAD: Atraumatic. Normocephalic. EYES: Pupils equal round and reactive. Extraocular motions intact. No scleral icterus. No injection or drainage. ENT: Nose without bleeding or purulent drainage. Airway patent. RESPIRATORY: No distress. EXTREMITIES: No edema or joint tenderness. SPINE: No midline tenderness. Tender over left SI joint and paraspinals. 5/5 strength in bilateral lower extremities. SKIN: No rash or erythema of visible areas Initial Vital Signs Initial Vital Signs: Vital Signs Temperature 98.3 F 07/06/23 17:10 Pulse Rate 108 H 07/06/23 17:10 Respiratory Rate 16 07/06/23 17:10 Blood Pressure 128/89 07/06/23 17:10 Pulse Oximetry 98 07/06/23 17:10 Oxygen Delivery Method Room Air 07/06/23 17:10 <Barry Lucia DO - Last Filed: 07/07/23 07:03> Initial Vital Signs Initial Vital Signs: Vital Signs Temperature 98.3 F 07/06/23 17:10 Pulse Rate 108 H 07/06/23 17:10 Respiratory Rate 16 07/06/23 17:10 Blood Pressure 128/89 07/06/23 17:10 Pulse Oximetry 98 07/06/23 17:10 Oxygen Delivery Method Room Air 07/06/23 17:10 Course <Dnayell Mariee PA-C - Last Filed: 07/06/23 18:52> Orders Ordered: Discontinued Medications Cyclobenzaprine HCl (Cyclobenzaprine 10 Mg Tablet) 10 mg PO NOW ONE Stop: 07/06/23 18:12 Last Admin: 07/06/23 18:15 Dose: 10 mg Documented By: DIVINE Ketorolac Tromethamine (Ketorolac 30 Mg/Ml Vial) 30 mg IM NOW ONE Stop: 07/06/23 17:30 Last Admin: 07/06/23 17:35 Dose: 30 mg Documented By: DIVINE Morphine Sulfate (Morphine 4 Mg/Ml Inj) 4 mg IM NOW ONE Stop: 07/06/23 17:30 Last Admin: 07/06/23 17:35 Dose: 4 mg Documented By: DIVINE Vital Signs Vital signs: Vital Signs - 8 hr 07/06/23 17:10 07/06/23 18:24 Temperature 98.3 F Pulse Rate 108 H 96 H Respiratory Rate 16 18 Blood Pressure 128/89 105/79 Pulse Oximetry 98 99 Oxygen Delivery Method Room Air Room Air <Barry Lucia DO - Last Filed: 07/07/23 07:03> Orders Ordered: Discontinued Medications Cyclobenzaprine HCl (Cyclobenzaprine 10 Mg Tablet) 10 mg PO NOW ONE Stop: 07/06/23 18:12 Last Admin: 07/06/23 18:15 Dose: 10 mg Documented By: DIVINE Ketorolac Tromethamine (Ketorolac 30 Mg/Ml Vial) 30 mg IM NOW ONE Stop: 07/06/23 17:30 Last Admin: 07/06/23 17:35 Dose: 30 mg Documented By: DIVINE Morphine Sulfate (Morphine 4 Mg/Ml Inj) 4 mg IM NOW ONE Stop: 07/06/23 17:30 Last Admin: 07/06/23 17:35 Dose: 4 mg Documented By: DIVINE Vital Signs Vital signs: Vital Signs - 8 hr 07/06/23 17:10 07/06/23 18:24 Temperature 98.3 F Pulse Rate 108 H 96 H Respiratory Rate 16 18 Blood Pressure 128/89 105/79 Pulse Oximetry 98 99 Oxygen Delivery Method Room Air Room Air MDM - Back Pain/Injury <Danyell Mariee PA-C - Last Filed: 07/06/23 18:52> MDM Narrative Medical decision making narrative: Multiple etiologies for patient's symptoms considered including, but not limited to: Low back strain, low back spasm, cauda equina, hematoma, epidural abscess Patient with no history of trauma, no IV drug use, no fever, no red flags for cauda equina. No indication for imaging today. Suspect low back strain. Pain improved after IM morphine 4 mg and IM Toradol 30 mg. Also given cyclobenzaprine 10 mg. Patient has a ride home. Advised rest, stretching, ice, NSAIDs. Prescription sent for cyclobenzaprine for at home. Advised to follow up with PCP if not improving with conservative therapy in 4-6 weeks for consideration of physical therapy. Return precautions advised. Patient's symptoms improved over duration of stay with above-stated therapies. Findings and discharge diagnosis discussed with patient/family followed by verbalization of understanding Return precautions discussed with patient/family whom verbalize understanding of diagnosis and plan Discharge Plan Departure Patient Disposition: Home Clinical Impression: Strain of lumbar region Qualifiers: Encounter type: initial encounter Qualified Code(s): S39.012A - Strain of muscle, fascia and tendon of lower back, initial encounter Instructions: DI for Low Back Pain, DI for Back Spasm Activity Restrictions/Additional Instructions: *You have been diagnosed with low back strain and spasm. You can use ice, stretching, gentle activity such as walking, NSAIDs such as ibuprofen starting tomorrow at 5:00 a.m. and the muscle relaxants I will send to your pharmacy. You can take days for back pain to improve and weeks for it to resolve altogether. If your pain persists, please contact your primary care provider about potentially going to physical therapy. If you develop any loss of bowel or bladder control, are unable to walk or have numbness in your groin, please come back to the emergency department for reassessment. *What to do: *Please continue to take your regular medications as directed. [x] New medication prescriptions sent to your pharmacy: [facility] [ ] New medication written as a paper prescription [ ] No new medications given *Please follow up with your primary care provider in 2-3 days, call for an appointment. Let them know you were seen in the Emergency Department and that we ask that you be seen in follow up. We will electronically transmit a record of today's note if your PCP is in our system *If you do not have a primary care provider please contact the [facility] Resource line at [phone]. They will ask some questions about your medical history and help get you set up with a doctor in the community. *Return to Emergency Department if you should have any new, worsening or concerning symptoms, such as [fever greater than 101 F, shaking chills, worsening pain, persistent vomiting or other concerning symptoms]. Prescriptions: New cyclobenzaprine 10 mg tablet 10 mg PO TID PRN (Reason: muscle spasm) Qty: 10 0RF Discontinued amoxicillin-pot clavulanate [Augmentin] 875-125 mg tablet 1 tab PO BID Qty: 20 0RF hydrocodone-acetaminophen 5-325 mg tablet 1 tab PO Q4-6H PRN (Reason: pain) Qty: 4 0RF ketorolac 10 mg tablet 10 mg PO Q6H PRN (Reason: pain) Qty: 14 0RF ketorolac 10 mg tablet 10 mg PO Q6H PRN (Reason: pain) Qty: 14 0RF hydrocodone-acetaminophen 5-325 mg tablet 1 tab PO Q6H PRN (Reason: pain) Qty: 10 0RF cyclobenzaprine 10 mg tablet 10 mg PO TID PRN (Reason: muscle spasm) Qty: 20 0RF No Action ondansetron HCl 4 mg tablet 4 mg PO Q6H PRN (Reason: nausea and vomiting) Qty: 10 0RF naproxen 500 mg tablet 500 mg PO Q12H PRN (Reason: pain) Qty: 10 0RF Rx Instructions: administer with food or milk Referrals: Miscellaneous,Doctor, MD [Primary Care Provider] - Stand Alone Forms: Patient Portal/API ED Sign-out <Barry Lucia, DO - Last Filed: 07/07/23 07:03> [facility] Dr Lucia Co-Sign Statement: I was available for consultation during this patient's emergency department visit. This chart is signed by myself for administrative purposes only. I did not have direct contact with this patient during this visit. They were seen independently by the APC.
[2023-07-06] MEDS: CYCLOBENZAPRINE 10 MG TABLET PO (18:15)
[2023-07-06 18:24] VITALS: BP 105/79; PULSE 96; RESP 18; O2SAT 99
== END 2023-07-06 18:25 | disposition home or self-care (01) ==
PROVIDERS: Emergency Provider Physician Assistant
DX: S39.012A Strain of muscle, fascia and tendon of lower back, initial encounter (principal); X58.XXXA Exposure to other specified factors, initial encounter
CPT/HCPCS: 99283; J1885; J2270

== ENCOUNTER 2023-12-19 00:40 | Emergency (ER) | payer OTHER, MEDICAID, SELFPAY ==
[2017-11-26 12:43] VITALS: BMI 21.9
[2023-12-19 00:46] VITALS: BP 124/76; PULSE 85; RESP 18; TEMP 36.9; O2SAT 98; BMI 21.9
--- NOTE | 2023-12-19 00:48 | ED_ITS ---
HPI - General Adult General Chief complaint: Extremity Injury, Lower Stated complaint: RT LEG PAIN Time Seen by Provider: 12/19/23 00:47 History of Present Illness HPI narrative: 48-year-old woman with no significant medical history presents with acute onset right Achilles pain. She states she was going about her usual activities getting ready for bed, took off her high top sneakers and felt a snap and then severe pain in the Achilles region of the right ankle. There was no obvious trauma beyond taking off her shoe. She has not complaining of bony tenderness. She states the pain radiates up into her calf. She can not bear weight at this point. She states she has not recently been on antibiotics. Related Data Previous Rx's Medication Instructions Recorded naproxen 500 mg tablet 500 mg PO Q12H PRN pain #10 tabs 11/27/17 ondansetron HCl 4 mg tablet 4 mg PO Q6H PRN nausea and 11/27/17 vomiting #10 tabs cyclobenzaprine 10 mg tablet 10 mg PO TID PRN muscle spasm #10 07/06/23 tabs oxycodone-acetaminophen 5 mg-325 1 tab PO Q6H PRN pain #14 tabs 12/19/23 mg tablet Allergies Allergy/AdvReac Type Severity Reaction Status Date / Time erythromycin base Allergy Unknown Vomiting Verified 07/06/23 17:23 [ERYTHROMYCIN BASE] Sulfa (Sulfonamide Allergy Unknown Swelling Verified 07/06/23 17:23 Antibiotics) of [SULFA (SULFONAMIDE Lip/Tongue/Throat ANTIBIOTICS)] Review of Systems Review of Systems Narrative: Pertinent positive and negative findings as per HPI Patient History Medical History Dental infection Social History household members: none Smoking Status: Current every day smoker alcohol intake: never Smoking Status: Current every day smoker alcohol intake frequency: 0-2 drinks per day Substance Use Type: marijuana Exam Narrative Exam Narrative: General: Alert appropriate in no acute distress Respiratory: Able to speak in full sentences, no obvious respiratory distress Extremity: Right Achilles tendon is exquisitely tender without significant erythema or warmth to suggest infection. There is swelling through the mid portion of the Achilles tendon, she has not able to extend or flex her foot secondary to pain. She is having muscle spasm into the gastroc and soleus muscle secondary to pain. There is some edema spreading from the posterior portion of her heel/Achilles area around 2 both ankles. Neurovascularly she is intact distally Neurologic: Grossly intact no obvious asymmetries or abnormalities Psych: appropriate insight and affect, cooperative Initial Vital Signs Initial Vital Signs: Vital Signs Temperature 98.5 F 12/19/23 00:46 Pulse Rate 85 12/19/23 00:46 Respiratory Rate 18 12/19/23 00:46 Blood Pressure 124/76 12/19/23 00:46 Pulse Oximetry 98 12/19/23 00:46 Oxygen Delivery Method Room Air 12/19/23 00:46 Procedures Orthopedic Splinting/Casting Right ankle: Time of procedure: 01:23 Side: right Lower Extremity Injury Location: ankle (Achilles tendon) Lower Extremity Immobilizer: posterior splint (With foot in flexion) Other Orthopedic Equipment: crutches Post splinting neuro exam: intact Post splinting vascular exam: intact Placed by: Nursing Course Orders Ordered: Discontinued Medications Ibuprofen (Ibuprofen 400 Mg Tablet) 400 mg PO NOW ONE Stop: 12/19/23 00:58 Last Admin: 12/19/23 01:07 Dose: 400 mg Oxycodone/Acetaminophen (Oxycodone/Acetaminophen 5/325 Tablet) 1 tab PO NOW ONE Stop: 12/19/23 00:58 Last Admin: 12/19/23 01:07 Dose: 1 tab Vital Signs Vital signs: Vital Signs - 8 hr 12/19/23 00:46 Temperature 98.5 F Pulse Rate 85 Respiratory Rate 18 Blood Pressure 124/76 Pulse Oximetry 98 Oxygen Delivery Method Room Air Medical Decision Making [facility] Narrative Medical decision making narrative: CC: Acute right Achilles tendon pain Data collected from: patient Differential considered: Achilles rupture, low gastroc tear, in the absence of any trauma ankle injury or bony abnormality is far less likely. There does not appear to be any infection Exam documented above, pertinent findings include: Significant pain and tenderness over the midportion of the Achilles right side. Any palpation along this area completely reproduces and exacerbates the pain radiating up into the calf and forward over the malleoli bilaterally. She is neurovascularly intact Imaging studies independently reviewed: Given the absence of trauma and seemingly acute tendinous injury I do not think there is much benefit to ordering x-rays Treatments: Ibuprofen, Percocet Discussion: 48-year-old woman with acute pain and exquisite tenderness mid Achilles tendon simply taking off her high top tennis shoe. No other trauma involved. She has not been on recent fluoroquinolones or anything else that might be associated with tendon rupture tendon injury. We discussed ice, pain control, she is placed posterior short-leg splint with her foot slightly extended in a position of comfort. She is instructed in the use of crutches and suggested non weight-bearing until she is further evaluated by Orthopedics. We will ask her to follow up with Orthopedic surgery. Discharge Plan Departure Patient Disposition: Home Clinical Impression: Acute rupture of Achilles tendon Instructions: DI for Achilles Tendon Rupture Activity Restrictions/Additional Instructions: Thank you for coming in today I believe that you ruptured her Achilles tendon. As little frustrating that is simply taking off your high top tennis shoe may have been the incident that did this. I am not seeing any indication that you broke any bones. With the amount of muscle spasm and tendon tenderness I believe this is the correct diagnosis. I have placed you in a short-leg posterior splint that allows your foot to be pointed down slightly. This position keeps the edges of the tendon closely approximated and makes it very difficult for you to walk. Non-weightbearing on that leg is going to be recommended until you have been further evaluated by the orthopedic surgeons. Using 400 mg of ibuprofen (2 [id number] pills) and 1 Tylenol every 6 hours can be very helpful in controlling pain. For severe pain you can use 400 mg of ibuprofen and 1 Percocet. Percocet does have narcotic in it and will make you constipated. Oxycodone has the potential to cause addiction so please use it sparingly. Keeping your foot elevated, icing the outside of the splint and using crutches will be needed Percocet prescription was electronically transmitted to [facility] in [place], please contact [facility] at [phone] and let them know that you are in the emergency department, that you were diagnosed with an Achilles tendon rupture and need to be seen for definitive diagnosis and treatment. If you find that you are getting worse or develop any new symptoms, please feel free to return to the emergency department for further evaluation. Prescriptions: New oxycodone-acetaminophen 5-325 mg tablet 1 tab PO Q6H PRN (Reason: pain) Qty: 14 0RF No Action ondansetron HCl 4 mg tablet 4 mg PO Q6H PRN (Reason: nausea and vomiting) Qty: 10 0RF naproxen 500 mg tablet 500 mg PO Q12H PRN (Reason: pain) Qty: 10 0RF Rx Instructions: administer with food or milk cyclobenzaprine 10 mg tablet 10 mg PO TID PRN (Reason: muscle spasm) Qty: 10 0RF Referrals: Miscellaneous,Doctor, MD [Primary Care Provider] - Stand Alone Forms: Patient Portal/API
[2023-12-19] MEDS: OXYCODONE/ACETAMINOPHEN 5/325 TABLET 1 TAB PO (01:07)
[2023-12-19] MEDS: IBUPROFEN 400 MG TABLET PO (01:07)
[2023-12-19] MEDS: OXYCODONE/APAP 5/325 PREPACK 1 BOTTLE MISC (02:13)
[2023-12-19 02:30] VITALS: BP 145/87; PULSE 75; RESP 12; TEMP 36.8; O2SAT 96
== END 2023-12-19 02:15 | disposition home or self-care (01) ==
PROVIDERS: Emergency Provider Emergency Medicine
DX: S86.011A Strain of right Achilles tendon, initial encounter (principal); X58.XXXA Exposure to other specified factors, initial encounter
CPT/HCPCS: 29515; 99283

== ENCOUNTER 2024-08-12 13:09 | Emergency (ER) | payer OTHER, SELFPAY ==
[2017-11-26 12:43] VITALS: BMI 21.9
[2024-08-12 13:12] VITALS: BP 148/85; PULSE 103; RESP 22; TEMP 36.3; O2SAT 98; BMI 20.1
--- NOTE | 2024-08-12 13:34 | ED_ITS ---
HPI - Dental/Oral <Ollie Alatorre PA-C - Last Filed: 08/12/24 13:43> General Chief complaint: Dental/Oral Stated complaint: tooth pain , needs meds Time Seen by Provider: 08/12/24 13:23 Source: patient Mode of arrival: Ambulatory History of Present Illness HPI Narrative: 49-year-old female with history of for dentition presents to the ED with 2 days of dental pain. Patient states that she is in the process of moving dentist, will be seeing a new dentist at [facility]. Patient states that she has a broken tooth on the right upper side that has been painful since yesterday. No fever, chills, nausea, vomiting. Pain is sufficiently controlled with [id number] analgesics such as Excedrin, ibuprofen. Related Data Previous Rx's Medication Instructions Recorded naproxen 500 mg tablet 500 mg PO Q12H PRN pain #10 tabs 11/27/17 ondansetron HCl 4 mg tablet 4 mg PO Q6H PRN nausea and 11/27/17 vomiting #10 tabs cyclobenzaprine 10 mg tablet 10 mg PO TID PRN muscle spasm #10 07/06/23 tabs oxycodone-acetaminophen 5 mg-325 1 tab PO Q6H PRN pain #14 tabs 12/19/23 mg tablet amoxicillin 875 mg-potassium 1 tab PO Q12H 14 days #28 tabs 08/12/24 clavulanate 125 mg tablet Allergies Allergy/AdvReac Type Severity Reaction Status Date / Time erythromycin base Allergy Unknown Vomiting Verified 07/06/23 17:23 [ERYTHROMYCIN BASE] Sulfa (Sulfonamide Allergy Unknown Swelling Verified 07/06/23 17:23 Antibiotics) of [SULFA (SULFONAMIDE Lip/Tongue/Throat ANTIBIOTICS)] Review of Systems <Ollie Alatorre PA-C - Last Filed: 08/12/24 13:43> Constitutional Constitutional: Denies chills, Denies fatigue, Denies fever(s), Denies frequent falls, Denies lethargy and Denies weakness Eyes Eyes: Denies change in vision, Denies eye discharge, Denies irritation and Denies loss of vision ENT Ears, Nose, Mouth, and Throat: Denies change in voice, Reports dental pain, Denies dizziness, Denies neck pain, Denies sore throat and Denies throat swelling Cardiovascular Cardiovascular: Denies chest pain, Denies irregular heart rhythm, Denies lightheadedness, Denies palpitations, Denies dyspnea, Denies dyspnea on exertion and Denies orthopnea Respiratory Respiratory: Denies cough, Denies dyspnea, Denies dyspnea on exertion and Denies wheezing Gastrointestinal Gastrointestinal: Denies abdominal pain, Denies change in bowel habits, Denies diarrhea, Denies nausea and Denies vomiting Musculoskeletal Musculoskeletal: Denies neck pain and Denies numbness Integumentary/Breasts Skin/Breast: Denies pruritus, Denies erythema, Denies rash and Denies wounds Neurologic Neurologic: Denies behavioral changes, Denies confusion, Denies dizziness, Denies frequent falls, Denies loss of vision, Denies numbness and Denies weakness Psychiatric Psychiatric: Denies anxiety, Denies behavioral changes, Denies confusion, Denies depression, Denies homicidal ideation and Denies suicidal ideation Endocrine Endocrine: Denies fatigue, Denies flushing and Denies palpitations Hematologic/Lymphatic Hematologic/Lymphatic: Denies easy bruising Allergic/Immunologic Allergic/Immunologic: Denies urticaria, Denies throat swelling and Denies wheezing Patient History <Ollie Alatorre PA-C - Last Filed: 08/12/24 13:43> Medical History Dental infection Social History household members: none Smoking Status: Current every day smoker alcohol intake: never Smoking Status: Current every day smoker tobacco type: cigarettes alcohol intake frequency: 0-2 drinks per day Exam <Ollie Alatorre PA-C - Last Filed: 08/12/24 13:43> Narrative Exam Narrative: Const General:?cooperative, healthy appearing and comfortable [facility] Head:?normal to inspection Ears:?hearing grossly normal bilaterally Nose:?external nose normal Face and sinus:?normal facial exam and sinuses nontender Mouth:? Overall for dentition. There is a right upper tooth that appears broken, with periapical abscess. No discharge noted on exam. Tender to touch. Throat:?posterior oropharynx normal Eyes General:?appearance normal, both eyes and all related structures Neck Neck:?normal visual inspection and no lymphadenopathy noted Resp Effort & Inspection:?normal respiratory effort Auscultation:?clear to auscultation bilaterally Cardio Rate:?regular rate Rhythm:?regular rhythm Neuro General:?patient alert, patient awake and patient oriented x3 Initial Vital Signs Initial Vital Signs: Vital Signs Temperature 97.3 F L 08/12/24 13:12 Pulse Rate 103 H 08/12/24 13:12 Respiratory Rate 22 08/12/24 13:12 Blood Pressure 148/85 H 08/12/24 13:12 Pulse Oximetry 98 08/12/24 13:12 Oxygen Delivery Method Room Air 08/12/24 13:12 <Zita Bro DO - Last Filed: 08/16/24 07:14> Initial Vital Signs Initial Vital Signs: Vital Signs Temperature 97.3 F L 08/12/24 13:12 Pulse Rate 103 H 08/12/24 13:12 Respiratory Rate 22 08/12/24 13:12 Blood Pressure 148/85 H 08/12/24 13:12 Pulse Oximetry 98 08/12/24 13:12 Oxygen Delivery Method Room Air 08/12/24 13:12 Course <Ollie Alatorre PA-C - Last Filed: 08/12/24 13:43> Vital Signs Vital signs: Vital Signs - 8 hr 08/12/24 13:12 Temperature 97.3 F L Pulse Rate 103 H Respiratory Rate 22 Blood Pressure 148/85 H Pulse Oximetry 98 Oxygen Delivery Method Room Air <Zita Bro DO - Last Filed: 08/16/24 07:14> Vital Signs Vital signs: Vital Signs - 8 hr 08/12/24 13:12 Temperature 97.3 F L Pulse Rate 103 H Respiratory Rate 22 Blood Pressure 148/85 H Pulse Oximetry 98 Oxygen Delivery Method Room Air MDM - Dental/Oral <JUANITA Soriano Last Filed: 08/12/24 13:43> MDM Narrative Medical decision making narrative: 49-year-old female with history of for dentition presents to the ED with 2 days of dental pain. Physical exam is consistent with a broken tooth, with likely periapical abscess. Antibiotics prescribed. Recommend patient follow-up with dentist as soon as possible for further evaluation and definitive treatment. ED return precautions discussed with patient. Patient verbalized understanding. Medical records reviewed: Yes Discharge Plan Departure Patient Disposition: Home Clinical Impression: Pain, dental Instructions: DI for Dental Pain Activity Restrictions/Additional Instructions: You were evaluated in the ED today for dental pain. It is likely that you have a broken tooth that might also be infected. You are being prescribed antibiotics. Please take the antibiotics as prescribed. It is important that you follow-up with your dentist as soon as possible for further evaluation and treatment. Return to the ED if you have worsening symptoms. Prescriptions: New amoxicillin-pot clavulanate 875-125 mg tablet 1 tab PO Q12H 14 Days Qty: 28 0RF No Action ondansetron HCl 4 mg tablet 4 mg PO Q6H PRN (Reason: nausea and vomiting) Qty: 10 0RF naproxen 500 mg tablet 500 mg PO Q12H PRN (Reason: pain) Qty: 10 0RF Rx Instructions: administer with food or milk cyclobenzaprine 10 mg tablet 10 mg PO TID PRN (Reason: muscle spasm) Qty: 10 0RF oxycodone-acetaminophen 5-325 mg tablet 1 tab PO Q6H PRN (Reason: pain) Qty: 14 0RF Stand Alone Forms: Patient Portal/API/Survey ED Sign-out <Zita Bro DO - Last Filed: 08/16/24 07:14> Cosign ED Attending Cosashantiature Attestation: I was available for consultation.
== END 2024-08-12 13:38 | disposition home or self-care (01) ==
PROVIDERS: Emergency Provider Student in an Organized Health Care Education/Training Program
DX: K08.89 Other specified disorders of teeth and supporting structures (principal)
CPT/HCPCS: 99281